=== PATIENT | female | born 1930 | race Hispanic/Latino ===

== ENCOUNTER 2017-08-11 15:41 | Inpatient (IN) | payer MEDICARE, BC ==
[2017-08-11 16:27] LABS: Hematocrit 29.6 % (36.0-47.0); Mean Platelet Volume 7.6 fL (7.4-10.4); Red Blood Cell (RBC) Count 3.25 mill/uL (4.20-5.40); White Blood Cell (WBC) Count 1.7 thou/uL (4.8-10.8)
[2017-08-11 16:35] LABS: Lactic Acid - Sepsis 0.9 mmol/L (0.5-2.2)
[2017-08-11 16:42] LABS: ALT (SGPT) 18 U/L (8-55); AST (SGOT) 27 U/L (5-34); Alkaline Phosphatase 70 U/L (40-150); Anion Gap 13 mmol/L (10-20); BUN (Urea Nitrogen) 36 mg/dL (9.8-20.1); Bilirubin, Total 0.8 mg/dL (0.2-1.2); Calc. Creatinine Clearance 0 mL/min (70-130); Calcium 8.6 mg/dL (7.8-10.44); Carbon Dioxide 28 mmol/L (23-31); Chloride 88 mmol/L (98-107); Estimated GFR-MDRD 27; Globulin 3.9 g/dL (2.4-3.5)
[2017-08-11 16:47] LABS: Troponin I 0.227 ng/mL (< 0.028)
[2017-08-11 16:53] LABS: Bilirubin Negative (Negative); Blood, Urine Negative (Negative); Glucose, Urine (Dipstick) Negative (Negative); Ketone, Urine Negative (Negative); Nitrite Negative (Negative); Protein, Urine (Dipstick) Negative (Neg-Trace); Urobilinogen 0.2 mg/dL (0.2-1.0)
[2017-08-11 16:58] LABS: Band 1 % (5-11); Neutrophil 4 % (42-75); Ovalocytes SLIGHT = 2-5 cells (100X) (0-1/hpf); Polychromasia SLIGHT = 2-3 cells (100X) (0-2/hpf); Reactive Lymphocytes 10 % (0-10)
--- NOTE | 2017-08-11 17:42 | CT ---
CT BRAIN WITHOUT CONTRAST 08/11/17 HISTORY: Altered mental status. FINDINGS: Comparison is made with the exam of 06/30/17. Changes of chronic small vessel ischemic disease are again seen. The ventricular size is stable and the basilar cisterns patent. No evidence of acute infarct, hemorrhage, midline shift or abnormal ext ra-axial fluid collections is noted. The bony calvarium is intact. The visualized paranasal sinuses and mastoid air cells are well aerated. The probable arachnoid cyst in the left middle cranial fossa is stable. IMPRESSION: Stable exam. No acute process. POS: [facility]
[2017-08-11] MEDS ORDERED: Piperacillin/Tazobactam 4.5 GM VIAL ONE (18:36)
[2017-08-11] MEDS ORDERED: Sodium Chloride 0.9% 100 ML ONE (18:37)
[2017-08-11] MEDS ORDERED: Acetaminophen 650 MG Suppository ONE (18:37)
[2017-08-11] MEDS ORDERED: Vancomycin HCl 1 GM in Premix Bag 1 BAG IVPB SCH (18:45)
[2017-08-11] MEDS ORDERED: Piperacillin/Tazobactam 4.5 GM in Sodium Chloride 0.9% 100 ML IVPB SCH (18:45)
--- NOTE | 2017-08-11 19:00 | RAD ---
SINGLE VIEW OF THE CHEST: 08/11/17 COMPARISON: 07/12/17 HISTORY: Sepsis. Altered mental status. FINDINGS: Single view of the chest shows a normal sized cardiomediastinal silhouette. There is no evidence of consolidation, mass, or pleural effusion. The bones are unremarkable. IMPRESSION: No evidence of acute cardiopulmonary disease. POS: [facility]
[2017-08-11] MEDS ORDERED: Sodium Chloride 0.9% 1,000 ML IV SCH (21:06)
[2017-08-11] MEDS ORDERED: Ondansetron HCl/PF 4 MG/2 ML Vial IVP PRN (21:06)
[2017-08-11] MEDS ORDERED: Ondansetron ODT 4 MG TAB SL PRN (21:06)
[2017-08-11 21:08] LABS: Troponin I 0.231 ng/mL (< 0.028)
[2017-08-11 21:15] VITALS: BMI 28.9
[2017-08-12] MEDS ORDERED: Guaifenesin DM 100-10/5 ML UDCUP PO PRN (00:40)
[2017-08-12] MEDS ORDERED: Acetaminophen 325 MG TAB PO PRN (00:40)
[2017-08-12] MEDS ORDERED: traZODone HCl 50 MG TAB PO PRN (00:40)
[2017-08-12] MEDS ORDERED: VANCOMYCIN IVPB PRN (00:57)
[2017-08-12 01:24] LABS: Lactic Acid - Sepsis 0.8 mmol/L (0.5-2.2)
[2017-08-12] MEDS: Sodium Chloride 0.9% 1,000 ML IV SCH ×3 (01:28→19:52)
[2017-08-12] MEDS: Piperacillin/Tazobactam 4.5 GM in Sodium Chloride 0.9% 100 ML IVPB SCH ×3 (01:36→14:24)
--- NOTE | 2017-08-12 05:08 | HP ---
REASON FOR ADMISSION: Sepsis, acute encephalopathy, acute kidney injury, demand ischemia, and hyponatremia. HISTORY OF PRESENT ILLNESS: Please note majority of this history is obtained by my talking to ER physician and prior records as patient is not fully oriented at present. She was apparently sent from retirement for declining mental status, which has been progressive from last 7 weeks and was not participating with physical therapy. She was evaluated in the ER and was found to have had a temperature of 99 with white count of 1.7 and 42% lymphocytes. All her workup in the ER for infectious source has been negative. Currently, she is very lethargic, opens her eyes and falls asleep. PAST MEDICAL AND SURGICAL HISTORY: History of recent subarachnoid hemorrhage in June of this year, rib fractures, maxillary sinus fracture, left hemopneumothorax, Takotsubo syndrome with EF of around 20% post trauma, diabetes mellitus type 2, dyslipidemia, history of diverticulitis, osteoarthritis, hypotension, hysterectomy, cholecystectomy. PERSONAL HISTORY: Does not abuse alcohol or drugs. No history of smoking. Currently, a resident of [facility]. FAMILY HISTORY: Cannot be obtained as patient is very lethargic. ALLERGIES: To LATEX, SULFA, and MORPHINE. CURRENT MEDICATIONS: Patient is on aspirin 81 mg p.o. daily, Lipitor 10 mg p.o. at bedtime, Coreg 3.125 mg p.o. twice daily, Plavix 75 mg daily, digoxin 0.125 mg p.o. daily, Lexapro 10 mg daily, Lasix 20 mg twice daily, gabapentin 100 mg p.o. 3 times daily, lisinopril 2.5 mg p.o. daily, multivitamin 1 tab once daily, oxybutynin extended release 15 mg daily, Protonix 40 mg daily, MiraLax 17 grams daily, metformin 500 mg twice daily, Ultram p.r.n., trazodone 50 mg p.o. at bedtime p.r.n. REVIEW OF SYSTEMS: Cannot be obtained as patient is lethargic. PHYSICAL EXAMINATION: GENERAL: The patient is an 86-year-old female, who is currently very lethargic , but not in any acute distress. VITAL SIGNS: Blood pressure 110/64 with blood pressures ranging down to 90/60 at times, pulse 72 per minute, respiratory rate 20 per minute, temperature 99 degrees Fahrenheit, saturating 96% on 2 L nasal cannula. NECK: Supple, no elevated JVD. HEENT: Eyes: Extraocular muscles intact. Pupils reacting to light. Oral cavity, mucous membranes are dry. No exudates or congestion. CARDIOVASCULAR SYSTEM: S1, S2 heard. Regular rhythm. RESPIRATORY SYSTEM: Air entry 1+ bilateral. Scattered rales in the infra- axillary area. ABDOMEN: Soft, bowel sounds heard. No tenderness, rigidity, or guarding. There is some ecchymotic area on the abdomen, likely from her Lovenox subcutaneous shots. EXTREMITIES: No peripheral edema or calf tenderness. VASCULAR SYSTEM: Peripheral pulses 1+ bilateral. No ischemic ulcerations or gangrene. CENTRAL NERVOUS SYSTEM: No gross focal deficit seen. Patient moves all extremities, but is very slow to move them. PSYCHIATRIC SYSTEM: Cannot be accurately assessed due to patient's lethargy. LABORATORY AND X-RAY FINDINGS: Chest x-ray done shows no acute infiltrate or congestion. CT brain done shows no acute infarct, bleed or midline shift. UA is negative for nitrite and leukocyte esterase. Troponin I 0.227, CK-MB 1.4, albumin is 3.1, BUN 36, creatinine 1.8, sodium 125, serum bicarbonate 28, glucose is 255. Liver enzymes within normal limits. White count of 1.7, H and H 10 and 29, MCV is 91 with platelet count of 285 and 4% neutrophils with 42% lymphocytes and 42% monocytes. CLINICAL IMPRESSION AND PLAN: The patient will be admitted to medical floor for possible sepsis with acute encephalopathy. It appears like the patient has been progressively declining from last few weeks. Also, her CBC shows leukopenia with 4% neutrophils. Peripheral smear review by pathologist is pending at present. She also has mild acute kidney injury likely from dehydration and prerenal. Patient has history of Takotsubo syndrome with last EF of 20%-25%. Barnes cultures have been obtained and she will be on vancomycin and Zosyn. She would be gently hydrated in view of ejection fraction of around 20%-25%. We will obtain a BNP levels. Likely her hyponatremia is due to dehydration, but has basal rales on clinical exam. The patient will likely need palliative care consultation in view of her progressively declining. We will obtain an echo with 2D Doppler to assess her current EF. The patient's ejection fraction was 50%-55% prior to her traumatic hospitalization in June. We will also request consultation from Dr. Wright for suspected sepsis. Her overall prognosis is guarded. Please note I have seen and examined patient on . MTDD
[2017-08-12 05:47] LABS: ALT (SGPT) 16 U/L (8-55); AST (SGOT) 23 U/L (5-34); Alkaline Phosphatase 60 U/L (40-150); Anion Gap 14 mmol/L (10-20); BUN (Urea Nitrogen) 34 mg/dL (9.8-20.1); Bilirubin, Total 0.6 mg/dL (0.2-1.2); Calc. Creatinine Clearance 35 mL/min (70-130); Calcium 8.3 mg/dL (7.8-10.44); Carbon Dioxide 30 mmol/L (23-31); Chloride 93 mmol/L (98-107); Estimated GFR-MDRD 31; Globulin 3.4 g/dL (2.4-3.5)
[2017-08-12 05:57] LABS: Hematocrit 26.6 % (36.0-47.0); Mean Platelet Volume 7.7 fL (7.4-10.4); Microcytosis MODERATE=15-30 cells (100X) (0-5/hpf); Neutrophil 4 % (42-75); Ovalocytes SLIGHT = 2-5 cells (100X) (0-1/hpf); Red Blood Cell (RBC) Count 2.87 mill/uL (4.20-5.40); White Blood Cell (WBC) Count 2.2 thou/uL (4.8-10.8)
[2017-08-12] MEDS: Aspirin 81 mg Enteric Coated Tablet PO SCH (07:55)
[2017-08-12] MEDS: Escitalopram Oxalate 10 mg Tablet PO SCH (07:56)
[2017-08-12] MEDS: Famotidine 20 MG TAB PO SCH (07:56)
[2017-08-12] MEDS: Docusate 100 MG CAP PO SCH ×2 (07:56→19:51)
[2017-08-12] MEDS: Clopidogrel Bisulfate 75 MG TAB PO SCH (07:57)
[2017-08-12] MEDS: Enoxaparin Sodium 30 MG/0.3 ML SYRINGE SC SCH (07:57)
[2017-08-12] MEDS: Digoxin 0.125 MG TAB PO SCH (08:05)
[2017-08-12] MEDS ORDERED: Vancomycin HCl 1 GM in Premix Bag 1 BAG IVPB SCH (09:00)
--- NOTE | 2017-08-12 11:00 | PDOC.PN ---
- Subjective Encounter Start Date: 08/12/17 Encounter Start Time: 07:45 -: old records requested/rev as per granddaughter, [place] go [place] from [place] but no body at home can take care of her, her is 89 years, she was agitated at group home, she was swing bed before but no improvement so sent to group home, had on and off fever at group home this morning per grand daughter pt is doing well - Objective Resuscitation Status: Resuscitation Status FULL:Full Resuscitation MAR Reviewed: Yes Vital Signs & Weight: Vital Signs (12 hours) Temp Pulse Resp BP Pulse Ox 08/12/17 08:05 60 08/12/17 07:18 98 F 62 16 102/62 98 08/12/17 04:00 99.3 F 84 20 103/60 96 08/12/17 00:48 97.6 F 61 20 94 L 08/11/17 23:16 98.1 F 61 20 Weight Weight 190 lb 5 oz Result Diagrams: 08/12/17 05:08 08/12/17 05:08 Additional Labs: Accuchecks 08/12/17 05:37 POC Glucose 155 H Phys Exam - Physical Examination Constitutional: NAD HEENT: PERRLA, moist MMs, sclera anicteric Neck: no JVD, supple Respiratory: no wheezing, no rales, no rhonchi Cardiovascular: RRR, no significant murmur, no rub Gastrointestinal: soft, non-tender, no distention, positive bowel sounds Musculoskeletal: no edema, pulses present Neurological: non-focal, normal sensation Psychiatric: normal affect Skin: no rash, normal turgor Dx/Plan (1) Encephalopathy acute Code(s): G93.40 - ENCEPHALOPATHY, UNSPECIFIED Status: Acute (2) Leucopenia Code(s): D72.819 - DECREASED WHITE BLOOD CELL COUNT, UNSPECIFIED Status: Acute (3) Sepsis Code(s): A41.9 - SEPSIS, UNSPECIFIED ORGANISM Status: Acute (4) Anemia, normocytic normochromic Code(s): D64.9 - ANEMIA, UNSPECIFIED Status: Chronic (5) Anxiety and depression Code(s): F41.8 - OTHER SPECIFIED ANXIETY DISORDERS Status: Chronic (6) CAD (coronary artery disease) Code(s): I25.10 - ATHSCL HEART DISEASE OF [place] CORONARY ARTERY W/O ANG PCTRS Status: Chronic (7) CKD (chronic kidney disease) stage 3, GFR 30-59 ml/min Code(s): N18.3 - CHRONIC KIDNEY DISEASE, STAGE 3 (MODERATE) Status: Chronic Comment: Azotemia due to chf. (8) Dyslipidemia Code(s): E78.5 - HYPERLIPIDEMIA, UNSPECIFIED Status: Chronic (9) Takotsubo cardiomyopathy Code(s): I51.81 - TAKOTSUBO SYNDROME Status: Chronic - Plan cont current plan of care, plan discussed w/ family, continue antibiotics * echo for elvated BNP * follow culture * continue empiric antibiotics, vancomycin and zosyn, though source of infection is not clear * discussed with family. Review of Systems - Review of Systems ENT: negative: Ear Pain, Ear Discharge, Nose Pain, Nose Discharge, Nose Congestion, Mouth Pain, Mouth Swelling, Throat Pain, Throat Swelling, Other Respiratory: negative: Cough, Dry, Shortness of Breath, Hemoptysis, SOB with Excertion, Pleuritic Pain, Sputum, Wheezing Cardiovascular: negative: Chest Pain, Palpitations, Orthopnea, Paroxysmal Noc. Dyspnea, Edema, Light Headedness, Other Gastrointestinal: negative: Nausea, Vomiting, Abdominal Pain, Diarrhea, Constipation, Melena, Hematochezia, Other Genitourinary: negative: Dysuria, Frequency, Incontinence, Hematuria, Retention , Other Musculoskeletal: negative: Neck Pain, Shoulder Pain, Arm Pain, Back Pain, Hand Pain, Leg Pain, Foot Pain, Other - Medications/Allergies Allergies/Adverse Reactions: Allergies Allergy/AdvReac Type Severity Reaction Status Date / Time latex Allergy Verified 08/11/17 21:02 Sulfa (Sulfonamide Allergy Verified 08/11/17 21:02 Antibiotics) Medications: Current Medications Acetaminophen (Tylenol) 650 mg PO Q4H PRN PRN Reason: Headache/Fever or Pain Aspirin (Ecotrin) 81 mg PO DAILY [facility] Last Admin: 08/12/17 07:55 Dose: 81 mg Atorvastatin Calcium (Lipitor) 10 mg PO HS [facility] Clopidogrel Bisulfate (Plavix) 75 mg PO DAILY [facility] Last Admin: 08/12/17 07:57 Dose: 75 mg Digoxin (Lanoxin) 0.125 mg PO QAM [facility] Last Admin: 08/12/17 08:05 Dose: 0.125 mg Docusate Sodium (Colace) 100 mg PO BID [facility] Last Admin: 08/12/17 07:56 Dose: 100 mg Enoxaparin Sodium (Lovenox) 30 mg SC DAILY [facility] Last Admin: 08/12/17 07:57 Dose: 30 mg Escitalopram Oxalate (Lexapro) 10 mg PO DAILY [facility] Last Admin: 08/12/17 07:56 Dose: 10 mg Famotidine (Pepcid) 20 mg PO DAILY [facility] Last Admin: 08/12/17 07:56 Dose: 20 mg Guaifenesin/Dextromethorphan (Robitussin Dm) 15 ml PO Q4H PRN PRN Reason: Cough Sodium Chloride (Normal Saline 0.9%) 1,000 mls @ 50 mls/hr IV .Q20H [facility] Last Admin: 08/12/17 01:28 Dose: Not Given Piperacillin Sod/Tazobactam (Sod 4.5 gm/ Sodium Chloride) 100 mls @ 200 mls/hr IVPB 0300,0900,1500,2100 [facility] Stop: 08/12/17 16:00 Last Admin: 08/12/17 08:21 Dose: 100 mls Piperacillin Sod/Tazobactam (Sod 3.375 gm/ Sodium Chloride) 100 mls @ 200 mls/ hr IVPB 0300,0900,1500,2100 [facility] Vancomycin HCl 750 mg/ Sodium (Chloride) 250 mls @ 250 mls/hr IVPB 2000 [facility] Miscellaneous Medication (Pharmacy To Dose) 1 each IVPB PRN PRN PRN Reason: SEPSIS Oxybutynin Chloride (Ditropan Xl) 15 mg PO DAILY [facility] Last Admin: 08/12/17 07:56 Dose: 15 mg Trazodone HCl (Desyrel) 50 mg PO HSPRN PRN PRN Reason: Insomnia
[2017-08-12] MEDS ORDERED: Dextrose 5% in Water 1,000 ML IV PRN (12:17)
[2017-08-12] MEDS ORDERED: Dextrose 50% Abboject 50 ML SYRINGE IVP PRN (12:17)
[2017-08-12] MEDS: HumaLOG 300 UNITS/3 ML VIAL SC PRN ×2 (12:30→18:08)
--- NOTE | 2017-08-12 15:06 | CON ---
DATE OF CONSULTATION: 08/12/2017 REASON FOR CONSULTATION: Change in mental status and neutropenia. HISTORY OF PRESENT ILLNESS: An 86-year-old who has a history of Takotsubo cardiomyopathy with ejection fraction around 20%, type 2 diabetes mellitus and osteoarthritis particularly in the knees and prior diverticulitis, who was initially admitted this year to this hospital after having sustained a fall in the home setting. The episode occurred from 06/23. At that time, she had slipped inside her home and fell on a concrete floor and had a number of injuries including a small subarachnoid hemorrhage along the left sylvian fissure, number of facial fractures and rib fractures. She also had a left hemopneumothorax and all those things were managed conservatively. The patient was readmitted with altered mental status. She was felt to have a non-ST segment elevation myocardial infarction and a severely depressed ejection fraction was noted. Cardiac catheterization did not reveal any coronary artery disease, therefore the diagnosis of Takotsubo cardiomyopathy was made. She was then transferred to the swing bed in [place] on Lipitor, Coreg, Plavix, cyclobenzaprine, digoxin, Lovenox, Lexapro, furosemide, Neurontin, lorazepam, Levaquin, lisinopril, Ditropan, Protonix, polyethylene glycol, oxycodone, tramadol, all those p.r.n., and trazodone at bedtime. Her hematology results then have ranged from 15 on admission on 06/23 down to 9.4 on 07/10 and then they went down to 4.6 on 07/31. This time, she was brought in because of change in mental status, which has been worsening for the past 7 weeks while she has been there at swing bed in [place]. She had not been participating in physical therapy. Initial evaluation in the emergency room demonstrated a temperature of 99 with a WBC count of 1.7 and 42% lymphocytes, and she was lethargic and very sleepy. The patient currently is fully awake and oriented, recognizes family members. She has even a sense of humor. Denies headaches. No change in visual symptoms, sore throat, odynophagia or dysphagia. No dyspnea or chest pain. She does have some chest pain in the left lower segment of the anterior chest wall, probably related to the previous rib fractures. She has full bladder and needs to void. No other abdominal tenderness. She has no diarrhea or constipation. She has chronic joint pains in the knees and right shoulder, which is unchanged. She has been deemed not a candidate for knee replacement. No other neurological findings or symptoms. PAST MEDICAL HISTORY: Type 2 diabetes, dyslipidemia, prior diverticulitis, osteoarthritis particularly in the knee area, not being felt to be eligible for replacement of the joints. Prior hysterectomy, cholecystectomy, history of recent fall, which was accidental with numerous injuries including facial and rib fractures and small left hemopneumothorax and also some form of cardiomyopathy with an ejection fraction around 20% with a negative coronary or normal coronary angiogram. Her ejection fraction initially was 20% and the last review was 20% to 25%. ALLERGIES: LATEX, SULFA DRUGS and MORPHINE. CURRENT MEDICATION LIST: Includes Tylenol, Ecotrin, Lipitor, Plavix, IV fluids , Lanoxin, Colace, Lovenox, Lexapro, Pepcid, glucagon, Robitussin, insulin, oxybutynin, Zosyn and vancomycin. FAMILY HISTORY: Noncontributory. SOCIAL HISTORY: Never a smoker and resident at [facility]. PHYSICAL EXAMINATION: VITAL SIGNS: Since admission, T-max 99.3. She is now 98.4. Blood pressure 164 , pulse is 56-62, respirations 16 and O2 sat 93% to 98% on 2 liters nasal cannula. SKIN: Shows a few areas of bruising associated with Lovenox injections. A very mild area of erythema in the presacral region and foot also has mild area of erythema. Peripheral IV access and she has no Mcmullen catheter. No lymphadenopathy. HEENT: Ocular movements are conjugate. Sclerae are white. Pupils are equal. Oral cavity with missing teeth in the upper maxilla and in the lower, there are few ones remaining, but quite a few missing ones in the lower one as well. NECK: Supple. No jugular venous distention. LUNGS: With symmetric breath sounds with crackles at the right base. HEART: S1 and S2 with no S3 or S4, regular rate. No wheezing noted. ABDOMEN: Moderately distended, particularly in the suprapubic area and bladder is full. She has the urge to void. EXTREMITIES: The joints have structural abnormalities with a lot of crepitus, deformity of the knee joints. The right one appears to have some effusion. No erythema noted. The patient has trace edema in the lower extremities. She has 1+ pulses in the dorsalis pedis. NEUROLOGIC: Plantar responses are flexor. No clonus. Cognitive function appears to be much improved since admission. LABORATORY DATA: White cell count is 1.7 on arrival and now it is 2.2, hemoglobin 10 and 8.6, MCV 92 and platelets 241. She has 4% neutrophils with a total neutrophil count of about 80 and 66% lymphocytes. The sodium is 132 and creatinine is 1.58. Liver profile is normal. BNP is 765 and albumin 2.6. Urinalysis was normal. Microbiology with negative blood cultures and the respiratory virus panel was negative. IMAGING DATA: Imaging studies showed a chest x-ray with no acute cardiopulmonary findings. Brain CT was stable. No acute process. ASSESSMENT: 1. Diabetes type 2. 2. Recent fall with numerous injuries as described above. 3. Mobility impairment with transfer to rehabilitation. 4. Non-ST segment elevation associated with Takotsubo cardiomyopathy, which is a presumptive diagnosis. 5. Delirium, recurrent with prompt improvement after admission to the hospital. At this time associated with neutropenia, which is severe. DISCUSSION: The differential diagnosis includes drug-induced neutropenia and delirium. She is on a number of medications that can be associated with either one of them. I would focus on the trazodone, Neurontin, benzodiazepine drugs and opioids. An infectious process is less likely. She does not have evidence of sepsis syndrome at this time and an autoimmune syndrome is not likely either. Broad-spectrum coverage has been started and we will go ahead and continue this, but limit to just one broad-spectrum antimicrobial. Can discontinue vancomycin. Eventually discontinue antimicrobials according to culture results The sedative agents need to be discontinued to prevent recrudescence of the delirium. MTDD
[2017-08-12] MEDS: Piperacillin/Tazobactam 3.375 GM in Sodium Chloride 0.9% 100 ML IVPB SCH (19:52)
[2017-08-12] MEDS: Atorvastatin Calcium 10 MG TAB PO SCH (19:52)
[2017-08-12] MEDS ORDERED: Vancomycin HCl 750 MG in Sodium Chloride 0.9% 250 ML 250 ML IVPB SCH (20:00)
[2017-08-13] MEDS: Piperacillin/Tazobactam 3.375 GM in Sodium Chloride 0.9% 100 ML IVPB SCH ×4 (02:17→20:58)
[2017-08-13] MEDS: HumaLOG 300 UNITS/3 ML VIAL SC PRN ×3 (05:55→16:56)
[2017-08-13 08:53] LABS: Hematocrit 25.6 % (36.0-47.0); Mean Platelet Volume 7.5 fL (7.4-10.4); Red Blood Cell (RBC) Count 2.75 mill/uL (4.20-5.40); White Blood Cell (WBC) Count 3.1 thou/uL (4.8-10.8)
[2017-08-13] MEDS: Digoxin 0.125 MG TAB PO SCH (09:00)
[2017-08-13 09:14] LABS: Anion Gap 15 mmol/L (10-20); BUN (Urea Nitrogen) 29 mg/dL (9.8-20.1); Calc. Creatinine Clearance 39 mL/min (70-130); Calcium 8.4 mg/dL (7.8-10.44); Carbon Dioxide 27 mmol/L (23-31); Chloride 94 mmol/L (98-107); Estimated GFR-MDRD 35
[2017-08-13] MEDS: Aspirin 81 mg Enteric Coated Tablet PO SCH (09:57)
[2017-08-13] MEDS: Famotidine 20 MG TAB PO SCH (09:57)
[2017-08-13] MEDS: Docusate 100 MG CAP PO SCH ×2 (09:57→20:58)
[2017-08-13] MEDS: Clopidogrel Bisulfate 75 MG TAB PO SCH (09:57)
[2017-08-13] MEDS: Enoxaparin Sodium 30 MG/0.3 ML SYRINGE SC SCH (09:58)
[2017-08-13] MEDS: Escitalopram Oxalate 10 mg Tablet PO SCH (09:58)
[2017-08-13 10:01] LABS: Band 9 % (5-11); Neutrophil 13 % (42-75); Polychromasia SLIGHT = 2-3 cells (100X) (0-2/hpf)
[2017-08-13] MEDS: GRANIX 300 MCG/0.5 ML VIAL SC SCH (10:01)
--- NOTE | 2017-08-13 10:22 | PDOC.PN ---
- Subjective Encounter Start Date: 08/13/17 Encounter Start Time: 07:40 Patient seen and examined. No new complaints. No overnight events - Objective Resuscitation Status: Resuscitation Status FULL:Full Resuscitation MAR Reviewed: Yes Vital Signs & Weight: Vital Signs (12 hours) Temp Pulse Resp BP Pulse Ox 08/13/17 07:23 97.8 F 51 L 16 132/69 97 08/13/17 00:50 98.7 F 56 L 18 90/53 L 92 L Weight Weight 190 lb 5 oz Result Diagrams: 08/13/17 08:39 08/13/17 08:39 Additional Labs: Accuchecks 08/13/17 08/12/17 08/12/17 05:32 20:15 16:22 POC Glucose 183 H 165 H 214 H 08/12/17 11:27 POC Glucose 255 H Phys Exam - Physical Examination Constitutional: NAD HEENT: PERRLA, moist MMs, sclera anicteric Neck: no JVD, supple Respiratory: no wheezing, no rales, no rhonchi Cardiovascular: RRR, no significant murmur, no rub Gastrointestinal: soft, non-tender, no distention Musculoskeletal: no edema, pulses present Neurological: non-focal, normal sensation Lymphatic: no nodes Psychiatric: normal affect, A&O x 3 Skin: no rash, normal turgor Dx/Plan (1) Encephalopathy acute Code(s): G93.40 - ENCEPHALOPATHY, UNSPECIFIED Status: Resolved (2) Leucopenia Code(s): D72.819 - DECREASED WHITE BLOOD CELL COUNT, UNSPECIFIED Status: Acute (3) Sepsis Code(s): A41.9 - SEPSIS, UNSPECIFIED ORGANISM Status: Acute (4) Anemia, normocytic normochromic Code(s): D64.9 - ANEMIA, UNSPECIFIED Status: Chronic (5) Anxiety and depression Code(s): F41.8 - OTHER SPECIFIED ANXIETY DISORDERS Status: Chronic (6) CAD (coronary artery disease) Code(s): I25.10 - ATHSCL HEART DISEASE OF [place] CORONARY ARTERY W/O ANG PCTRS Status: Chronic (7) CKD (chronic kidney disease) stage 3, GFR 30-59 ml/min Code(s): N18.3 - CHRONIC KIDNEY DISEASE, STAGE 3 (MODERATE) Status: Chronic Comment: (8) Dyslipidemia Code(s): E78.5 - HYPERLIPIDEMIA, UNSPECIFIED Status: Chronic (9) Takotsubo cardiomyopathy Code(s): I51.81 - TAKOTSUBO SYNDROME Status: Chronic - Plan cont current plan of care, continue antibiotics, 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 Review of Systems - Review of Systems Constitutional: negative: Fever, Chills, Sweats, Weakness, Malaise, Other Respiratory: negative: Cough, Dry, Shortness of Breath, Hemoptysis, SOB with Excertion, Pleuritic Pain, Sputum, Wheezing Cardiovascular: negative: Chest Pain, Palpitations, Orthopnea, Paroxysmal Noc. Dyspnea, Edema, Light Headedness, Other Gastrointestinal: negative: Nausea, Vomiting, Abdominal Pain, Diarrhea, Constipation, Melena, Hematochezia, Other Genitourinary: negative: Dysuria, Frequency, Incontinence, Hematuria, Retention , Other Musculoskeletal: negative: Neck Pain, Shoulder Pain, Arm Pain, Back Pain, Hand Pain, Leg Pain, Foot Pain, Other - Medications/Allergies Allergies/Adverse Reactions: Allergies Allergy/AdvReac Type Severity Reaction Status Date / Time latex Allergy Verified 08/11/17 21:02 Sulfa (Sulfonamide Allergy Verified 08/11/17 21:02 Antibiotics) Medications: Current Medications Acetaminophen (Tylenol) 650 mg PO Q4H PRN PRN Reason: Headache/Fever or Pain Aspirin (Ecotrin) 81 mg PO DAILY [facility] Last Admin: 08/13/17 09:57 Dose: 81 mg Atorvastatin Calcium (Lipitor) 10 mg PO HS [facility] Last Admin: 08/12/17 19:52 Dose: 10 mg Clopidogrel Bisulfate (Plavix) 75 mg PO DAILY [facility] Last Admin: 08/13/17 09:57 Dose: 75 mg Dextrose/Water (Dextrose 50%) 25 gm IVP PRN PRN PRN Reason: HYPOGLYCEMIA PROTOCOL Digoxin (Lanoxin) 0.125 mg PO QAM [facility] Last Admin: 08/12/17 08:05 Dose: 0.125 mg Docusate Sodium (Colace) 100 mg PO BID [facility] Last Admin: 08/13/17 09:57 Dose: 100 mg Enoxaparin Sodium (Lovenox) 30 mg SC DAILY [facility] Last Admin: 08/13/17 09:58 Dose: 30 mg Escitalopram Oxalate (Lexapro) 10 mg PO DAILY [facility] Last Admin: 08/13/17 09:58 Dose: 10 mg Famotidine (Pepcid) 20 mg PO DAILY [facility] Last Admin: 08/13/17 09:57 Dose: 20 mg Glucagon (Glucagon) 1 mg IM PRN PRN PRN Reason: HYPOGLYCEMIA PROTOCOL Guaifenesin/Dextromethorphan (Robitussin Dm) 15 ml PO Q4H PRN PRN Reason: Cough Sodium Chloride (Normal Saline 0.9%) 1,000 mls @ 50 mls/hr IV .Q20H [facility] Last Admin: 08/12/17 19:52 Dose: Not Given Piperacillin Sod/Tazobactam (Sod 3.375 gm/ Sodium Chloride) 100 mls @ 200 mls/ hr IVPB 0300,0900,1500,2100 [facility] Last Admin: 08/13/17 09:56 Dose: 100 mls Dextrose/Water (D5w) 1,000 mls @ 0 mls/hr IV INF PRN; As Directed PRN Reason: HYPOGLYCEMIA PROTOCOL Insulin Human Lispro (Humalog) 0 units SC .MODERATE SLIDING SC PRN; Protocol PRN Reason: MODERATE SLIDING SCALE Last Admin: 08/13/17 05:55 Dose: 2 unit Oxybutynin Chloride (Ditropan Xl) 15 mg PO DAILY [facility] Last Admin: 08/13/17 09:57 Dose: 15 mg Tbo-Filgrastim (Granix) 300 mcg SC DAILY [facility] Stop: 08/15/17 09:01 Last Admin: 08/13/17 10:01 Dose: 300 mcg Trazodone HCl (Desyrel) 50 mg PO HSPRN PRN PRN Reason: Insomnia
[2017-08-13] MEDS: Sodium Chloride 0.9% 1,000 ML IV SCH (15:13)
[2017-08-13] MEDS: Atorvastatin Calcium 10 MG TAB PO SCH (20:58)
[2017-08-14] MEDS: Sodium Chloride 0.9% 1,000 ML IV SCH (00:25)
[2017-08-14] MEDS: Piperacillin/Tazobactam 3.375 GM in Sodium Chloride 0.9% 100 ML IVPB SCH ×2 (03:15→10:01)
[2017-08-14] MEDS: HumaLOG 300 UNITS/3 ML VIAL SC PRN ×2 (05:54→17:04)
[2017-08-14 08:27] LABS: Anion Gap 13 mmol/L (10-20); BUN (Urea Nitrogen) 15 mg/dL (9.8-20.1); Calc. Creatinine Clearance 50 mL/min (70-130); Calcium 9.2 mg/dL (7.8-10.44); Carbon Dioxide 28 mmol/L (23-31); Chloride 98 mmol/L (98-107); Estimated GFR-MDRD 47
[2017-08-14] MEDS ORDERED: Furosemide 40 MG/4 ML VIAL SLOW IVP SCH (08:30)
[2017-08-14] MEDS: Docusate 100 MG CAP PO SCH ×2 (08:43→20:45)
[2017-08-14 08:44] LABS: Band 26 % (5-11); Hematocrit 30.7 % (36.0-47.0); Mean Platelet Volume 7.5 fL (7.4-10.4); Metamyelocyte 6 % (0-0); Neutrophil 45 % (42-75); Polychromasia SLIGHT = 2-3 cells (100X) (0-2/hpf); White Blood Cell (WBC) Count 15.8 thou/uL (4.8-10.8)
[2017-08-14] MEDS: GRANIX 300 MCG/0.5 ML VIAL SC SCH (08:46)
[2017-08-14] MEDS: Enoxaparin Sodium 30 MG/0.3 ML SYRINGE SC SCH (08:47)
--- NOTE | 2017-08-14 11:43 | PDOC.PN ---
- Subjective Encounter Start Date: 08/14/17 Encounter Start Time: 07:50 this morning pt has dyspnea, she was trying to pull out iv so required restraint , no fever - Objective Resuscitation Status: Resuscitation Status FULL:Full Resuscitation MAR Reviewed: Yes Vital Signs & Weight: Vital Signs (12 hours) Temp Pulse Resp BP BP Pulse Ox 08/14/17 08:00 99.8 F H 71 32 H 08/14/17 07:32 99.8 F H 71 32 H 161/71 H 94 L 08/14/17 06:00 98.7 F 84 20 149/73 H 95 08/14/17 00:00 98.3 F 76 20 138/63 96 Weight Weight 190 lb 5 oz I&O: 08/13/17 08/14/17 08/15/17 06:59 06:59 06:59 Intake Total 2200 Balance 2200 Result Diagrams: 08/14/17 07:59 08/14/17 07:59 Additional Labs: Accuchecks 08/14/17 08/13/17 08/13/17 05:52 20:49 16:11 POC Glucose 209 H 176 H 196 H 08/13/17 11:23 POC Glucose 228 H Radiology Reviewed by me: Yes (chest xray) Phys Exam - Physical Examination Constitutional: NAD HEENT: PERRLA, moist MMs, sclera anicteric Neck: no JVD, supple Respiratory: wheezing present few base rales Cardiovascular: RRR, no significant murmur, no rub Gastrointestinal: soft, non-tender, no distention, positive bowel sounds Musculoskeletal: no edema, pulses present Neurological: moves all 4 limbs Psychiatric: normal affect Skin: no rash, normal turgor Dx/Plan (1) Encephalopathy acute Code(s): G93.40 - ENCEPHALOPATHY, UNSPECIFIED Status: Resolved (2) Leucopenia Code(s): D72.819 - DECREASED WHITE BLOOD CELL COUNT, UNSPECIFIED Status: Resolved (3) Sepsis Code(s): A41.9 - SEPSIS, UNSPECIFIED ORGANISM Status: Ruled-out (4) Anemia, normocytic normochromic Code(s): D64.9 - ANEMIA, UNSPECIFIED Status: Chronic (5) Anxiety and depression Code(s): F41.8 - OTHER SPECIFIED ANXIETY DISORDERS Status: Chronic (6) CAD (coronary artery disease) Code(s): I25.10 - ATHSCL HEART DISEASE OF [place] CORONARY ARTERY W/O ANG PCTRS Status: Chronic (7) CKD (chronic kidney disease) stage 3, GFR 30-59 ml/min Code(s): N18.3 - CHRONIC KIDNEY DISEASE, STAGE 3 (MODERATE) Status: Chronic Comment: (8) Dyslipidemia Code(s): E78.5 - HYPERLIPIDEMIA, UNSPECIFIED Status: Chronic (9) Takotsubo cardiomyopathy Code(s): I51.81 - TAKOTSUBO SYNDROME Status: Chronic (10) Acute on chronic diastolic (congestive) heart failure Code(s): I50.33 - ACUTE ON CHRONIC DIASTOLIC (CONGESTIVE) HEART FAILURE Status : Acute - Plan cont current plan of care * DC IVF * DC neupogen * Give lasix 40 mg iv bid * DC antibiotics for now as culture negative * medication reviewed as below * symptomatic treatment.. Review of Systems - Review of Systems ENT: negative: Ear Pain, Ear Discharge, Nose Pain, Nose Discharge, Nose Congestion, Mouth Pain, Mouth Swelling, Throat Pain, Throat Swelling, Other Respiratory: Shortness of Breath, SOB with Excertion. negative: Cough, Dry, Hemoptysis, Pleuritic Pain, Sputum, Wheezing Cardiovascular: negative: Chest Pain, Palpitations, Orthopnea, Paroxysmal Noc. Dyspnea, Edema, Light Headedness, Other Gastrointestinal: negative: Nausea, Vomiting, Abdominal Pain, Diarrhea, Constipation, Melena, Hematochezia, Other Genitourinary: negative: Dysuria, Frequency, Incontinence, Hematuria, Retention , Other Musculoskeletal: negative: Neck Pain, Shoulder Pain, Arm Pain, Back Pain, Hand Pain, Leg Pain, Foot Pain, Other - Medications/Allergies Allergies/Adverse Reactions: Allergies Allergy/AdvReac Type Severity Reaction Status Date / Time latex Allergy Verified 08/11/17 21:02 Sulfa (Sulfonamide Allergy Verified 08/11/17 21:02 Antibiotics) Medications: Current Medications Acetaminophen (Tylenol) 650 mg PO Q4H PRN PRN Reason: Headache/Fever or Pain Aspirin (Ecotrin) 81 mg PO DAILY [facility] Last Admin: 08/13/17 09:57 Dose: 81 mg Atorvastatin Calcium (Lipitor) 10 mg PO HS [facility] Last Admin: 08/13/17 20:58 Dose: 10 mg Clopidogrel Bisulfate (Plavix) 75 mg PO DAILY [facility] Last Admin: 09/22/17 09:57 Dose: 75 mg Dextrose/Water (Dextrose 50%) 25 gm IVP PRN PRN PRN Reason: HYPOGLYCEMIA PROTOCOL Digoxin (Lanoxin) 0.125 mg PO QAM [facility] Last Admin: 08/13/17 09:00 Dose: Not Given Docusate Sodium (Colace) 100 mg PO BID [facility] Last Admin: 08/14/17 08:43 Dose: Not Given Enoxaparin Sodium (Lovenox) 30 mg SC DAILY [facility] Last Admin: 08/14/17 08:47 Dose: 30 mg Escitalopram Oxalate (Lexapro) 10 mg PO DAILY [facility] Last Admin: 08/13/17 09:58 Dose: 10 mg Famotidine (Pepcid) 20 mg PO DAILY [facility] Last Admin: 08/13/17 09:57 Dose: 20 mg Furosemide (Lasix) 40 mg SLOW IVP 0600,1400 [facility] Glucagon (Glucagon) 1 mg IM PRN PRN PRN Reason: HYPOGLYCEMIA PROTOCOL Guaifenesin/Dextromethorphan (Robitussin Dm) 15 ml PO Q4H PRN PRN Reason: Cough Piperacillin Sod/Tazobactam (Sod 3.375 gm/ Sodium Chloride) 100 mls @ 200 mls/ hr IVPB 0300,0900,1500,2100 [facility] Last Admin: 08/14/17 10:01 Dose: 100 mls Dextrose/Water (D5w) 1,000 mls @ 0 mls/hr IV INF PRN; As Directed PRN Reason: HYPOGLYCEMIA PROTOCOL Insulin Human Lispro (Humalog) 0 units SC .MODERATE SLIDING SC PRN; Protocol PRN Reason: MODERATE SLIDING SCALE Last Admin: 08/14/17 05:54 Dose: 4 unit Oxybutynin Chloride (Ditropan Xl) 15 mg PO DAILY [facility] Last Admin: 08/13/17 09:57 Dose: 15 mg
--- NOTE | 2017-08-14 12:19 | RAD ---
AP VIEW CHEST: 08/14/2017 HISTORY: Dyspnea. COMPARISON: 08/11/2017 FINDINGS: AP view chest demonstrates cardiomegaly. Mild pulmonary vascular congestion is seen. No evidence o f effusions, pneumonia, or pneumothorax is seen. Multiple left-sided rib fractures again seen. IMPRESSION: 1. Multiple left-sided rib fractures. 2. Cardiomegaly. 3. No evidence of pneumothorax. POS: [facility]
[2017-08-14] MEDS: Digoxin 0.125 MG TAB PO SCH (13:11)
[2017-08-14] MEDS: Clopidogrel Bisulfate 75 MG TAB PO SCH (13:12)
[2017-08-14] MEDS: Aspirin 81 mg Enteric Coated Tablet PO SCH (13:12)
[2017-08-14] MEDS: Escitalopram Oxalate 10 mg Tablet PO SCH (13:12)
[2017-08-14] MEDS: Famotidine 20 MG TAB PO SCH (13:13)
[2017-08-14] MEDS: Furosemide 40 MG/4 ML VIAL SLOW IVP SCH (13:27)
[2017-08-14] MEDS: Atorvastatin Calcium 10 MG TAB PO SCH (20:45)
[2017-08-15] MEDS: Furosemide 40 MG/4 ML VIAL SLOW IVP SCH ×2 (05:09→13:54)
[2017-08-15] MEDS ORDERED: Potassium Chloride 20 MEQ TAB PO SCH (07:30)
[2017-08-15] MEDS ORDERED: Potassium Chloride 10 MEQ TAB PO SCH (07:30)
[2017-08-15] MEDS: Clopidogrel Bisulfate 75 MG TAB PO SCH (09:39)
[2017-08-15] MEDS: Digoxin 0.125 MG TAB PO SCH (09:39)
[2017-08-15] MEDS: Ferrous Sulfate 325 MG TAB PO SCH (09:40)
[2017-08-15] MEDS: Cyanocobalamin (Vitamin B-12) 1,000 MCG TAB PO SCH (09:40)
[2017-08-15] MEDS: Folic Acid 1 MG TAB PO SCH (09:40)
[2017-08-15] MEDS: Multivitamin W/ Minerals 1 TAB PO SCH (09:40)
[2017-08-15] MEDS: Aspirin 81 mg Enteric Coated Tablet PO SCH (09:40)
[2017-08-15] MEDS: Escitalopram Oxalate 10 mg Tablet PO SCH (09:40)
[2017-08-15] MEDS: Famotidine 20 MG TAB PO SCH (09:40)
[2017-08-15] MEDS: Docusate 100 MG CAP PO SCH ×2 (09:41→19:49)
[2017-08-15] MEDS: Enoxaparin Sodium 30 MG/0.3 ML SYRINGE SC SCH (09:41)
--- NOTE | 2017-08-15 10:08 | PDOC.PN ---
- Subjective Encounter Start Date: 08/15/17 Encounter Start Time: 08:10 pt is confused this morning but appears comfortable, no dyspnea, no fever - Objective Resuscitation Status: Resuscitation Status FULL:Full Resuscitation MAR Reviewed: Yes Vital Signs & Weight: Vital Signs (12 hours) Temp Pulse Resp BP Pulse Ox 08/15/17 09:39 64 08/15/17 08:03 97.4 F L 72 18 124/66 96 Weight Weight 190 lb 5 oz I&O: 08/14/17 08/15/17 08/16/17 06:59 06:59 06:59 Intake Total 2200 500 Balance 2200 500 Result Diagrams: 08/14/17 07:59 08/14/17 07:59 Additional Labs: Accuchecks 08/15/17 08/14/17 08/14/17 04:35 20:57 16:08 POC Glucose 128 H 157 H 166 H 08/14/17 11:31 POC Glucose 167 H Phys Exam - Physical Examination Constitutional: NAD HEENT: PERRLA, moist MMs, sclera anicteric Neck: no JVD, supple Respiratory: no wheezing, no rales, no rhonchi Cardiovascular: RRR, no significant murmur, no rub Gastrointestinal: soft, non-tender, no distention, positive bowel sounds Musculoskeletal: no edema, pulses present Neurological: moves all 4 limbs Lymphatic: no nodes Psychiatric: normal affect Skin: no rash, normal turgor Dx/Plan (1) Acute on chronic diastolic (congestive) heart failure Code(s): I50.33 - ACUTE ON CHRONIC DIASTOLIC (CONGESTIVE) HEART FAILURE Status : Acute (2) Encephalopathy acute Code(s): G93.40 - ENCEPHALOPATHY, UNSPECIFIED Status: Resolved (3) Leucopenia Code(s): D72.819 - DECREASED WHITE BLOOD CELL COUNT, UNSPECIFIED Status: Resolved (4) Sepsis Code(s): A41.9 - SEPSIS, UNSPECIFIED ORGANISM Status: Ruled-out (5) Anemia, normocytic normochromic Code(s): D64.9 - ANEMIA, UNSPECIFIED Status: Chronic (6) Anxiety and depression Code(s): F41.8 - OTHER SPECIFIED ANXIETY DISORDERS Status: Chronic (7) CAD (coronary artery disease) Code(s): I25.10 - ATHSCL HEART DISEASE OF [place] CORONARY ARTERY W/O ANG PCTRS Status: Chronic (8) CKD (chronic kidney disease) stage 3, GFR 30-59 ml/min Code(s): N18.3 - CHRONIC KIDNEY DISEASE, STAGE 3 (MODERATE) Status: Chronic Comment: (9) Dyslipidemia Code(s): E78.5 - HYPERLIPIDEMIA, UNSPECIFIED Status: Chronic (10) Takotsubo cardiomyopathy Code(s): I51.81 - TAKOTSUBO SYNDROME Status: Resolved - 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 * if stable by tomorrow, will plan for discharge to MD . Review of Systems - Review of Systems Other: unable to review due to confusional state and not reliable - Medications/Allergies Allergies/Adverse Reactions: Allergies Allergy/AdvReac Type Severity Reaction Status Date / Time latex Allergy Verified 08/11/17 21:02 Sulfa (Sulfonamide Allergy Verified 08/11/17 21:02 Antibiotics) Medications: Current Medications Acetaminophen (Tylenol) 650 mg PO Q4H PRN PRN Reason: Headache/Fever or Pain Aspirin (Ecotrin) 81 mg PO DAILY [facility] Last Admin: 08/15/17 09:40 Dose: 81 mg Atorvastatin Calcium (Lipitor) 10 mg PO HS [facility] Last Admin: 08/14/17 20:45 Dose: 10 mg Clopidogrel Bisulfate (Plavix) 75 mg PO DAILY [facility] Last Admin: 08/15/17 09:39 Dose: 75 mg Cyanocobalamin (Vitamin B-12) 1,000 mcg PO DAILY [facility] Last Admin: 08/15/17 09:40 Dose: 1,000 mcg Dextrose/Water (Dextrose 50%) 25 gm IVP PRN PRN PRN Reason: HYPOGLYCEMIA PROTOCOL Digoxin (Lanoxin) 0.125 mg PO QAM [facility] Last Admin: 08/15/17 09:39 Dose: 0.125 mg Docusate Sodium (Colace) 100 mg PO BID [facility] Last Admin: 08/15/17 09:41 Dose: Not Given Enoxaparin Sodium (Lovenox) 30 mg SC DAILY [facility] Last Admin: 08/15/17 09:41 Dose: 30 mg Escitalopram Oxalate (Lexapro) 10 mg PO DAILY [facility] Last Admin: 08/15/17 09:40 Dose: 10 mg Famotidine (Pepcid) 20 mg PO DAILY [facility] Last Admin: 08/15/17 09:40 Dose: 20 mg Ferrous Sulfate (Feosol) 325 mg PO QAM-WM [facility] Last Admin: 08/15/17 09:40 Dose: 325 mg Folic Acid (Folvite) 1 mg PO DAILY [facility] Last Admin: 08/15/17 09:40 Dose: 1 mg Furosemide (Lasix) 40 mg SLOW IVP 0600,1400 [facility] Last Admin: 08/15/17 05:09 Dose: 40 mg Glucagon (Glucagon) 1 mg IM PRN PRN PRN Reason: HYPOGLYCEMIA PROTOCOL Guaifenesin/Dextromethorphan (Robitussin Dm) 15 ml PO Q4H PRN PRN Reason: Cough Dextrose/Water (D5w) 1,000 mls @ 0 mls/hr IV INF PRN; As Directed PRN Reason: HYPOGLYCEMIA PROTOCOL Insulin Human Lispro (Humalog) 0 units SC .MODERATE SLIDING SC PRN; Protocol PRN Reason: MODERATE SLIDING SCALE Last Admin: 08/14/17 17:04 Dose: 2 unit Iron/Minerals/Multivitamins (Theragran M) 1 tab PO DAILY [facility] Last Admin: 08/15/17 09:40 Dose: 1 tab Oxybutynin Chloride (Ditropan Xl) 15 mg PO DAILY [facility] Last Admin: 08/15/17 09:40 Dose: 15 mg
[2017-08-15] MEDS: HumaLOG 300 UNITS/3 ML VIAL SC PRN ×2 (12:27→17:38)
[2017-08-15] MEDS: Atorvastatin Calcium 10 MG TAB PO SCH (19:48)
[2017-08-16] MEDS: Furosemide 40 MG/4 ML VIAL SLOW IVP SCH ×2 (05:02→05:11)
[2017-08-16 05:40] LABS: #Eosinphils 0.2 thou/uL (0.0-0.7); #Lymphocytes 2.6 thou/uL (1.20-3.40); #Monocytes 0.9 thou/uL (0.11-0.59); #Neutrophils 5.8 thou/uL (1.40-6.50); %Basophils 0.5 % (0.0-1.0); %Eosinophils 2.4 % (0.0-10.0); %Lymphocytes 26.9 % (21.0-51.0); %Monocytes 9.3 % (0.0-10.0); Hematocrit 30.2 % (36.0-47.0); Mean Platelet Volume 6.8 fL (7.4-10.4); Red Blood Cell (RBC) Count 3.27 mill/uL (4.20-5.40); White Blood Cell (WBC) Count 9.6 thou/uL (4.8-10.8)
[2017-08-16 06:04] LABS: ALT (SGPT) 17 U/L (8-55); AST (SGOT) 21 U/L (5-34); Alkaline Phosphatase 69 U/L (40-150); Anion Gap 12 mmol/L (10-20); BUN (Urea Nitrogen) 10 mg/dL (9.8-20.1); Bilirubin, Total 0.3 mg/dL (0.2-1.2); Calc. Creatinine Clearance 56 mL/min (70-130); Carbon Dioxide 35 mmol/L (23-31); Chloride 95 mmol/L (98-107); Estimated GFR-MDRD 53; Globulin 3.4 g/dL (2.4-3.5); Protein, Total 5.9 g/dL (6.0-8.3)
[2017-08-16] MEDS ORDERED: Potassium Chloride 20 MEQ TAB PO SCH (07:15)
[2017-08-16 07:59] VITALS: TEMP 98.2
[2017-08-16] MEDS: Docusate 100 MG CAP PO SCH (08:01)
[2017-08-16] MEDS: Folic Acid 1 MG TAB PO SCH (08:02)
[2017-08-16] MEDS: Famotidine 20 MG TAB PO SCH (08:02)
[2017-08-16] MEDS: Clopidogrel Bisulfate 75 MG TAB PO SCH (08:02)
[2017-08-16] MEDS: Aspirin 81 mg Enteric Coated Tablet PO SCH (08:02)
[2017-08-16] MEDS: Ferrous Sulfate 325 MG TAB PO SCH (08:02)
[2017-08-16] MEDS: Cyanocobalamin (Vitamin B-12) 1,000 MCG TAB PO SCH (08:02)
[2017-08-16] MEDS: Multivitamin W/ Minerals 1 TAB PO SCH (08:02)
[2017-08-16] MEDS: Escitalopram Oxalate 10 mg Tablet PO SCH (08:02)
[2017-08-16] MEDS: Enoxaparin Sodium 30 MG/0.3 ML SYRINGE SC SCH (08:02)
[2017-08-16] MEDS: Digoxin 0.125 MG TAB PO SCH (08:05)
[2017-08-16] MEDS ORDERED: Furosemide 40 MG TAB PO SCH (09:00)
[2017-08-16] MEDS ORDERED: Magnesium Oxide 400 MG TAB PO SCH (11:00)
--- NOTE | 2017-08-16 11:04 | PDOC.PN ---
- Subjective Encounter Start Date: 08/16/17 Encounter Start Time: 07:25 Patient seen and examined. No new complaints. No overnight events - Objective Resuscitation Status: Resuscitation Status FULL:Full Resuscitation MAR Reviewed: Yes Vital Signs & Weight: Vital Signs (12 hours) Temp Pulse Resp BP Pulse Ox 08/16/17 08:05 70 08/16/17 08:00 98.2 F 70 22 H 08/16/17 07:57 98.2 F 74 22 H 131/61 95 Weight Weight 190 lb 5 oz I&O: 08/15/17 08/16/17 08/17/17 06:59 06:59 06:59 Intake Total 500 1200 Balance 500 1200 Result Diagrams: 08/16/17 05:16 08/16/17 05:16 Additional Labs: Accuchecks 08/16/17 08/15/17 08/15/17 04:03 23:46 16:15 POC Glucose 125 H 129 H 244 H 08/15/17 11:13 POC Glucose 270 H Phys Exam - Physical Examination Constitutional: NAD HEENT: PERRLA, moist MMs, sclera anicteric Neck: no JVD, supple Respiratory: no wheezing, no rales, no rhonchi Cardiovascular: RRR, no significant murmur, no rub Gastrointestinal: soft, non-tender, no distention Musculoskeletal: no edema, pulses present Neurological: non-focal Psychiatric: normal affect Dx/Plan (1) Encephalopathy acute Code(s): G93.40 - ENCEPHALOPATHY, UNSPECIFIED Status: Resolved (2) Leucopenia Code(s): D72.819 - DECREASED WHITE BLOOD CELL COUNT, UNSPECIFIED Status: Resolved (3) Sepsis Code(s): A41.9 - SEPSIS, UNSPECIFIED ORGANISM Status: Ruled-out (4) Anemia, normocytic normochromic Code(s): D64.9 - ANEMIA, UNSPECIFIED Status: Chronic (5) Anxiety and depression Code(s): F41.8 - OTHER SPECIFIED ANXIETY DISORDERS Status: Chronic (6) CAD (coronary artery disease) Code(s): I25.10 - ATHSCL HEART DISEASE OF [place] CORONARY ARTERY W/O ANG PCTRS Status: Chronic (7) CKD (chronic kidney disease) stage 3, GFR 30-59 ml/min Code(s): N18.3 - CHRONIC KIDNEY DISEASE, STAGE 3 (MODERATE) Status: Chronic Comment: (8) Dyslipidemia Code(s): E78.5 - HYPERLIPIDEMIA, UNSPECIFIED Status: Chronic (9) Takotsubo cardiomyopathy Code(s): I51.81 - TAKOTSUBO SYNDROME Status: Resolved (10) Acute on chronic diastolic (congestive) heart failure Code(s): I50.33 - ACUTE ON CHRONIC DIASTOLIC (CONGESTIVE) HEART FAILURE Status : Acute - Plan cont current plan of care * medication reviewed as below * symptomatic treatment. * see discharge summery * medically stable. * orally replace mg and potassium. Review of Systems - Review of Systems ENT: negative: Ear Pain, Ear Discharge, Nose Pain, Nose Discharge, Nose Congestion, Mouth Pain, Mouth Swelling, Throat Pain, Throat Swelling, Other Respiratory: negative: Cough, Dry, Shortness of Breath, Hemoptysis, SOB with Excertion, Pleuritic Pain, Sputum, Wheezing Cardiovascular: negative: Chest Pain, Palpitations, Orthopnea, Paroxysmal Noc. Dyspnea, Edema, Light Headedness, Other Gastrointestinal: negative: Nausea, Vomiting, Abdominal Pain, Diarrhea, Constipation, Melena, Hematochezia, Other Genitourinary: negative: Dysuria, Frequency, Incontinence, Hematuria, Retention , Other - Medications/Allergies Allergies/Adverse Reactions: Allergies Allergy/AdvReac Type Severity Reaction Status Date / Time latex Allergy Verified 08/11/17 21:02 Sulfa (Sulfonamide Allergy Verified 08/11/17 21:02 Antibiotics) Medications: Current Medications Acetaminophen (Tylenol) 650 mg PO Q4H PRN PRN Reason: Headache/Fever or Pain Aspirin (Ecotrin) 81 mg PO DAILY [facility] Last Admin: 08/16/17 08:02 Dose: 81 mg Atorvastatin Calcium (Lipitor) 10 mg PO HS [facility] Last Admin: 08/15/17 19:48 Dose: 10 mg Clopidogrel Bisulfate (Plavix) 75 mg PO DAILY [facility] Last Admin: 08/16/17 08:02 Dose: 75 mg Cyanocobalamin (Vitamin B-12) 1,000 mcg PO DAILY [facility] Last Admin: 08/16/17 08:02 Dose: 1,000 mcg Dextrose/Water (Dextrose 50%) 25 gm IVP PRN PRN PRN Reason: HYPOGLYCEMIA PROTOCOL Digoxin (Lanoxin) 0.125 mg PO QAM [facility] Last Admin: 08/16/17 08:05 Dose: 0.125 mg Docusate Sodium (Colace) 100 mg PO BID [facility] Last Admin: 08/16/17 08:01 Dose: 100 mg Enoxaparin Sodium (Lovenox) 30 mg SC DAILY [facility] Last Admin: 08/16/17 08:02 Dose: 30 mg Escitalopram Oxalate (Lexapro) 10 mg PO DAILY [facility] Last Admin: 08/16/17 08:02 Dose: 10 mg Famotidine (Pepcid) 20 mg PO DAILY [facility] Last Admin: 08/16/17 08:02 Dose: 20 mg Ferrous Sulfate (Feosol) 325 mg PO QAM-WM [facility] Last Admin: 08/16/17 08:02 Dose: 325 mg Folic Acid (Folvite) 1 mg PO DAILY [facility] Last Admin: 08/16/17 08:02 Dose: 1 mg Furosemide (Lasix) 40 mg PO 0900,1400 [facility] Last Admin: 08/16/17 08:02 Dose: 40 mg Glucagon (Glucagon) 1 mg IM PRN PRN PRN Reason: HYPOGLYCEMIA PROTOCOL Guaifenesin/Dextromethorphan (Robitussin Dm) 15 ml PO Q4H PRN PRN Reason: Cough Dextrose/Water (D5w) 1,000 mls @ 0 mls/hr IV INF PRN; As Directed PRN Reason: HYPOGLYCEMIA PROTOCOL Insulin Human Lispro (Humalog) 0 units SC .MODERATE SLIDING SC PRN; Protocol PRN Reason: MODERATE SLIDING SCALE Last Admin: 08/15/17 17:38 Dose: 4 unit Iron/Minerals/Multivitamins (Theragran M) 1 tab PO DAILY [facility] Last Admin: 08/16/17 08:02 Dose: 1 tab Magnesium Oxide (Magnesium Oxide) 800 mg PO NOW [facility] Stop: 08/16/17 12:00 Oxybutynin Chloride (Ditropan Xl) 15 mg PO DAILY [facility] Last Admin: 08/16/17 08:09 Dose: 15 mg
[2017-08-16 11:18] VITALS: BP 136/66
--- NOTE | 2017-08-16 12:46 | DIS ---
DATE OF ADMISSION: 08/11/2017 DATE OF DISCHARGE: 08/16/2017 PRIMARY CARE PHYSICIAN: Rafael Crespo M.D. DISCHARGE DISPOSITION: [facility]. PRIMARY DISCHARGE DIAGNOSES: 1. Acute on chronic diastolic heart failure, improved. 2. Leukopenia, resolved with Neupogen. 3. Acute encephalopathy, improved with baseline status. 3. Hypokalemia. 4. Hypomagnesemia. SECONDARY DISCHARGE DIAGNOSES: Normocytic anemia, anxiety, depression, coronary artery disease, sen ile dementia, chronic kidney disease stage 3, coronary artery disease, dyslipidemia, history of [place] t[place]o cardiomyopathy, and physical deconditioning. PRIMARY PROCEDURE/OPERATION: None. RADIOLOGICAL INVESTIGATION: CT brain negative for any acute intracranial process. Chest x-ray unre markable other than cardiomegaly. Echocardiography showed diastolic dysfunction. SIGNIFICANT LABORATORY DATA: WBC 9.6, hemoglobin 9.7, platelets 349. Sodium 139, potassium 3.3, BU N 10, creatinine 0.99. LFTs normal. BNP 771.3, magnesium 1.1. Urinalysis normal. Blood culture n egative. Urine culture negative. Respiratory virus panel negative. DISCHARGE MEDICATIONS: Aspirin 81 mg p.o. daily, Lipitor 10 mg p.o. at bedtime, Coreg 3.125 mg p.o. b.i.d., Plavix 75 mg p.o. daily, Flexeril 10 mg t.i.d. p.r.n., digoxin 250 mcg p.o. daily, Lexapro 10 mg daily, Lasix 20 mg p.o. b.i.d., gabapentin 100 mg t.i.d., lisinopril 2.5 mg p.o. daily, magnes ium oxide 250 mg p.o. daily, Theragran 1 tablet p.o. daily, Ditropan XL 15 mg p.o. daily, Protonix 2 0 mg p.o. daily, MiraLax 17 grams p.o. daily, potassium chloride 10 mEq p.o. daily, oxycodone 10 mg p.o. q.4 hourly p.r.n., tramadol 50 mg q.i.d. p.r.n. CONTRAINDICATIONS: None. CODE STATUS: FULL CODE. 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 Wright was consulted while in hospital. ALLERGIES: SULFA DRUGS. DISCHARGE PLAN: Post hospital, the patient will follow up with primary care physician. HOSPITAL COURSE: An 86-year-old female who was admitted by Dr. Stroud, please see his H\T\P fo r further details. This patient had recent hospitalization, at that time she had refracture and she was discharged to swing bed. She did not have any significant improvement, and that is why she was discharged to [facility]. Over there, the patient was found with agitation and she was altered and that is why they sent her b ack to the ER. In the emergency room, she was having low grade fever and leukopenia. This patient was not having any obvious source of infection. Her BNP was elevated. This patient was also having acute on chronic diastolic heart failure. This patient also had acute kidney failure. During this admission, we did echocardiography and confirmed that her EF is improved and her Takotsu dayana cardiomyopathy has been resolved. This patient had echocardiography that was normal and diastolic dysfunction. She did not have any s ource of infection. Dr. Wright started on filgrastim and with that her leukopenia resolved. She had abnormal electrolytes that were replaced before discharge. While in hospital, she received IV fluid and that is why she developed volume overload and that is w hy we stopped IV fluid and after that we gave her Lasix and with Lasix and she had significant impro vement. The patient seen and examined at bedside today. Please see my progress note from today for further details. In short, the patient had acute kidney failure and that is why she initially received IV fluid and t hat made her volume overload and we started on Lasix and that made her kidney failure better and her renal function by the time of discharge completely normal. Her pulmonary edema is resolved. Her e lectrolytes will be replaced orally. Her leukopenia resolved with filgrastim therapy. She does not have any infection. She cannot go ho me because family member cannot take care of her and that is why she needs to be on [facility]. Paperwork for discharge done. Discharge medication reconciliation done. Total time spent on discha rge day more than 30 minutes.
== END 2017-08-16 11:52 | DRG 291 ==
LOC: ERS 15:41 → T4-A 20:43
PROVIDERS: ADMIT Internal Medicine; ATTEND Internal Medicine
DX: I13.0 Hypertensive heart and chronic kidney disease with heart failure and stage 1 through stage 4 chronic kidney disease, or unspecified chronic kidney disease (principal); I50.33 Acute on chronic diastolic (congestive) heart failure; N17.9 Acute kidney failure, unspecified; G93.40 Encephalopathy, unspecified; E87.1 Hypo-osmolality and hyponatremia; N18.3 Chronic kidney disease, stage 3 (moderate); E87.6 Hypokalemia; E83.42 Hypomagnesemia; D64.9 Anemia, unspecified; F41.9 Anxiety disorder, unspecified; F32.9 Major depressive disorder, single episode, unspecified; I25.10 Atherosclerotic heart disease of native coronary artery without angina pectoris; F03.90 Unspecified dementia, unspecified severity, without behavioral disturbance, psychotic disturbance, mood disturbance, and anxiety; E78.5 Hyperlipidemia, unspecified; E86.0 Dehydration; M17.9 Osteoarthritis of knee, unspecified; E11.22 Type 2 diabetes mellitus with diabetic chronic kidney disease
CPT/HCPCS: 36415; 36416; 51701; 70450; 71010; 80048; 80053; 81003; 82533; 82553; 83605; 83735; 83880; 84484; 85025; 85060; 87040; 87086; 87633; 93005; 93306; 94760; 96361; 96365; 96367; A4353; G8978-GP-CM; G8979-GP-CL; G8987-GO-CL; G8988-GO-CJ; J1442; J1650; J1940; J2543; J3370; J7050

== ENCOUNTER 2017-10-01 11:34 | Inpatient (IN) | payer MEDICARE, BC ==
[2017-10-01 12:21] LABS: #Basophils 0.1 thou/uL (0.0-0.2); #Eosinphils 0.2 thou/uL (0.0-0.7); #Lymphocytes 2.9 thou/uL (1.20-3.40); #Monocytes 1.1 thou/uL (0.11-0.59); #Neutrophils 8.7 thou/uL (1.40-6.50); %Basophils 0.4 % (0.0-1.0); %Eosinophils 1.3 % (0.0-10.0); %Lymphocytes 22.5 % (21.0-51.0); %Monocytes 8.8 % (0.0-10.0); Hematocrit 25.1 % (36.0-47.0); Mean Platelet Volume 7.4 fL (7.4-10.4); Red Blood Cell (RBC) Count 2.81 mill/uL (4.20-5.40)
[2017-10-01 12:42] LABS: Lactic Acid - Sepsis 1.1 mmol/L (0.5-2.2)
[2017-10-01 12:46] LABS: ALT (SGPT) 20 U/L (8-55); AST (SGOT) 35 U/L (5-34); Alkaline Phosphatase 63 U/L (40-150); Anion Gap 17 mmol/L (10-20); BUN (Urea Nitrogen) 24 mg/dL (9.8-20.1); Bilirubin, Total 0.3 mg/dL (0.2-1.2); CK (CPK) 46 U/L (29-168); Calc. Creatinine Clearance 0 mL/min (70-130); Calcium 9.2 mg/dL (7.8-10.44); Carbon Dioxide 24 mmol/L (23-31); Chloride 97 mmol/L (98-107); Estimated GFR-MDRD 36; Globulin 4.7 g/dL (2.4-3.5); Lipase 36 U/L (8-78); Protein, Total 7.5 g/dL (6.0-8.3)
[2017-10-01 12:50] LABS: Troponin I 0.062 ng/mL (< 0.028)
[2017-10-01 12:54] LABS: Bilirubin Negative (Negative); Blood, Urine Trace (Negative); Glucose, Urine (Dipstick) Negative (Negative); Ketone, Urine Negative (Negative); Nitrite Positive (Negative); Protein, Urine (Dipstick) 30 mg/dL (Neg-Trace)
[2017-10-01 12:57] LABS: Bacteria/HPF 2+ HPF (None Seen); Hyaline Casts/LPF 7-10 HYALINE CAST LPF (0-3 Hyaline); RBC/HPF 0-3 HPF (0-3)
--- NOTE | 2017-10-01 13:09 | CT ---
HEAD CT NONCONTRAST: COMPARISON: 08/11/17. INDICATION: Altered mental status. FINDINGS: There is prominence of the ventricular system. No midline shift. No evidence of acute intracranial hemorrhage. There is mild to moderate chronic microvascular ischemic disease. 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 IMPRESSION: Stable head CT, without intracranial hemorrhage or mass effect. POS: [facility]
[2017-10-01 13:14] LABS: Yeast-All Forms None Seen HPF (None Seen)
[2017-10-01] MEDS ORDERED: cefTRIAXone\\ROCEPHIN 2 GM, Admixture Fee 1 EACH in Sodium Chloride 0.9% 100 ML IVPB SCH (14:00)
[2017-10-01] MEDS ORDERED: HYDROcodone/Acetaminophen 5/325 mg Tablet ONE (14:27)
[2017-10-01] MEDS ORDERED: Dextrose 50% Abboject 50 ML SYRINGE SLOW IVP PRN (16:25)
[2017-10-01] MEDS ORDERED: HYDROcodone/Acetaminophen 5/325 mg Tablet PO PRN (16:25)
[2017-10-01] MEDS ORDERED: Dextrose 5% in Water 1,000 ML IV PRN (16:25)
[2017-10-01] MEDS ORDERED: Heparin 5,000 UNITS/ML VIAL SC SCH (16:45)
--- NOTE | 2017-10-01 18:33 | HP ---
DATE OF ADMISSION: 10/01/2017 CHIEF COMPLAINT: Altered mental status. HISTORY OF PRESENT ILLNESS: The patient is an 86-year-old female from [facility]. She was found to be confused and was sent out to the emergency room for further evaluation. Brown cuevas did not have any fever or chills. She complained about a lot of pain in her both knees. At the t jane of emergency room visit evaluation, she was found to have UTI, which is probably the source of h er confusion. PAST MEDICAL HISTORY: Positive for: 1. Subarachnoid hemorrhage. 2. History of left hemopneumothorax. 3. History of Takotsubo cardiomyopathy with full recovery. 4. Diabetes mellitus type 2. 5. Dyslipidemia. 6. History of diverticulitis. 7. Osteoarthritis. 8. History of rib fractures and maxillary sinus fractures post fall in 06/2017. PAST SURGICAL HISTORY: 1. Hysterectomy. 2. Cholecystectomy. FAMILY HISTORY: Unobtainable secondary to the patient's mental condition. ALLERGIES: SULFA, MORPHINE and LATEX. MEDICATIONS: Please refer to her medications list. SOCIAL HISTORY: She does not have any history of cigarette smoking, alcohol intake or any illicit d rug use. REVIEW OF SYSTEMS: Unobtainable secondary to the patient's mental inability to communicate. PHYSICAL EXAMINATION: VITAL SIGNS: Her blood pressure is 109/79, pulse is 55, respiratory rate is 16, O2 saturation is 10 0% on room air. HEENT: Atraumatic, normocephalic. Eyes are PERRLA. Sclerae are nonicteric. Conjunctivae pinkish. Oral mucosa is dry. NECK: Supple, no lymphadenopathy. Thyroid is not palpable. LUNGS: Clear. HEART: S1, S2 normal. No S3, no S4, no any murmur. ABDOMEN: Soft, nontender, nondistended, obese. Bowel sounds are present. No organomegaly. EXTREMITIES: She has osteoarthritic changes in both knees, very painful to flexion or extension. P ulses on both tibialis posterior and dorsalis pedis arteries are similar bilaterally and good. NEUROLOGIC: She is awake. She is alert and oriented x2. There are no any motor deficits. Cranial nerves are intact. LABORATORY DATA: Showed white count of 13.0, hemoglobin 8.2, hematocrit 25.1 and platelet count is 440. Sodium of 132, potassium 5.7, chloride 97, CO2 24, BUN 24, creatinine 1.39, glucose 221, tropo willie 0.062, albumin 2.8, globulin 4.7, lipase 36. Urine showed 30 proteins, trace of blood, positive for nitrites, esterase large amount and WBCs 50 to too numerous to count, 4-6 squamous epithelial c ells, 2+ bacteria and 7-10 hyaline casts[address] No yeasts. CT of the brain was done, which did not show any acute abnormalities. There was prominence of the ventricular system, [id number] chronic m icrovascular ischemic changes and stable cavitary lacunar infarction of the right cerebellar hemisph ere. IMPRESSION: 1. Altered mental status, most likely secondary to urinary tract infection at this point with no ac three affiliated changes on CT of the brain. 2. Urinary tract infection. We will obtain cultures on her urine and blood and she will have Rocep hin 1 g IV piggyback done 1 dose in the emergency room and then we will continue. 3. Hyperkalemia. She will have Kayexalate 30 mL and then potassium will be checked again. 4. Dehydration. We will give her IV fluids, normal saline at 75 mL per hour since she had a histor y of some congestive heart failure. 5. Normocytic anemia with hemoglobin of 8.2. We will continue to follow the level. 6. Hyponatremia and hypochloremia. I think this is secondary to dehydration. It should improve wi th IV fluids. 7. Renal insufficiency with BUN up to 24 and creatinine 1.39. We will start her on IV fluids as me ntioned above. 8. Diabetes mellitus type 2. We will do Accu-Cheks a.c. and at bedtime and cover her with mild sli ding scale. 9. Elevated troponin. We will obtain 2 additional sets of cardiac enzymes and she will be admitted fulltime to the medical floor. Her condition is fair. Code is full. Surrogate decision maker is her and we will do DVT prophylaxis with heparin 5000 subcutaneous every 8 hours and she will be on peptic ulcer prophylaxis with 20 mg of Pepcid twice a day p.o.
[2017-10-01] MEDS: Sodium Chloride 0.9% 1,000 ML IV SCH (18:39)
[2017-10-01] MEDS ORDERED: FLU VACC TS2017-18 (>65YR) 0.5 ML SYRINGE IM ONE (21:00)
[2017-10-01] MEDS: Heparin 5,000 UNITS/ML VIAL SC SCH (21:00)
[2017-10-01] MEDS: Famotidine 20 MG TAB PO SCH (21:59)
[2017-10-02 05:19] LABS: #Eosinphils 0.1 thou/uL (0.0-0.7); #Lymphocytes 2.1 thou/uL (1.20-3.40); #Monocytes 0.7 thou/uL (0.11-0.59); #Neutrophils 4.7 thou/uL (1.40-6.50); %Basophils 0.2 % (0.0-1.0); %Eosinophils 1.8 % (0.0-10.0); %Lymphocytes 26.8 % (21.0-51.0); %Monocytes 9.4 % (0.0-10.0); Hematocrit 25.5 % (36.0-47.0); Mean Platelet Volume 7.8 fL (7.4-10.4); Red Blood Cell (RBC) Count 2.87 mill/uL (4.20-5.40); White Blood Cell (WBC) Count 7.6 thou/uL (4.8-10.8)
[2017-10-02 05:31] LABS: Anion Gap 15 mmol/L (10-20); BUN (Urea Nitrogen) 22 mg/dL (9.8-20.1); Calc. Creatinine Clearance 42 mL/min (70-130); Calcium 9.1 mg/dL (7.8-10.44); Carbon Dioxide 26 mmol/L (23-31); Chloride 101 mmol/L (98-107); Estimated GFR-MDRD 41
[2017-10-02] MEDS ORDERED: Cyclobenzaprine 10 MG TAB PO PRN (07:33)
[2017-10-02] MEDS ORDERED: traMADol HCl 50 MG TAB PO PRN (07:33)
[2017-10-02] MEDS ORDERED: oxyCODONE 5 MG TAB PO PRN (07:54)
[2017-10-02] MEDS: Oxybutynin ER 5 MG TAB PO SCH (08:59)
[2017-10-02] MEDS: Gabapentin 100 MG CAP PO SCH ×3 (09:00→20:29)
[2017-10-02] MEDS: Multivit, Therapeutic 1 TAB PO SCH (09:00)
[2017-10-02] MEDS: Digoxin 0.25 MG TAB PO SCH (09:00)
[2017-10-02] MEDS: Aspirin 81 mg Enteric Coated Tablet PO SCH (09:00)
[2017-10-02] MEDS: Clopidogrel Bisulfate 75 MG TAB PO SCH (09:01)
[2017-10-02] MEDS: Carvedilol 3.125 MG TAB PO SCH ×2 (09:01→17:33)
[2017-10-02] MEDS: Escitalopram Oxalate 10 mg Tablet PO SCH (09:01)
[2017-10-02] MEDS: Famotidine 20 MG TAB PO SCH ×2 (09:01→20:29)
[2017-10-02] MEDS: Heparin 5,000 UNITS/ML VIAL SC SCH ×3 (09:03→20:29)
--- NOTE | 2017-10-02 11:45 | PDOC.PN ---
- Subjective Encounter Start Date: 10/02/17 Encounter Start Time: 10:50 -: old records requested/rev Patient seen and examined. No new complaints. No overnight events - Objective Resuscitation Status: Resuscitation Status FULL:Full Resuscitation MAR Reviewed: Yes Vital Signs & Weight: Vital Signs (12 hours) Temp Pulse Resp BP Pulse Ox 10/02/17 09:00 63 10/02/17 08:00 98.2 F 63 14 96 10/02/17 07:49 98.2 F 58 L 16 112/57 L 98 10/02/17 05:41 98.4 F 72 18 104/50 L 95 10/02/17 00:22 98.2 F 60 16 118/60 98 I&O: 10/01/17 10/02/17 10/03/17 06:59 06:59 06:59 Intake Total 1500 Balance 1500 Result Diagrams: 10/02/17 04:45 10/02/17 04:45 Additional Labs: Accuchecks 10/02/17 10/01/17 10/01/17 05:45 19:39 18:14 POC Glucose 160 H 179 H 183 H Phys Exam - Physical Examination Constitutional: NAD HEENT: PERRLA, moist MMs, sclera anicteric Neck: no JVD, supple Respiratory: no wheezing, no rales, no rhonchi Cardiovascular: RRR, no significant murmur, no rub Gastrointestinal: soft, non-tender, no distention, positive bowel sounds Musculoskeletal: no edema, pulses present Neurological: non-focal, normal sensation, moves all 4 limbs Psychiatric: normal affect, A&O x 3 Skin: no rash, normal turgor Dx/Plan (1) Acute kidney failure Status: Acute (2) Demand ischemia Code(s): I24.8 - OTHER FORMS OF ACUTE ISCHEMIC HEART DISEASE Status: Acute (3) Encephalopathy acute Code(s): G93.40 - ENCEPHALOPATHY, UNSPECIFIED Status: Acute (4) Hyperkalemia Code(s): E87.5 - HYPERKALEMIA Status: Acute (5) UTI (urinary tract infection) Status: Acute (6) Anemia, normocytic normochromic Code(s): D64.9 - ANEMIA, UNSPECIFIED Status: Chronic (7) Anxiety and depression Code(s): F41.8 - OTHER SPECIFIED ANXIETY DISORDERS Status: Chronic (8) CAD (coronary artery disease) Code(s): I25.10 - ATHSCL HEART DISEASE OF [place] CORONARY ARTERY W/O ANG PCTRS Status: Chronic (9) CKD (chronic kidney disease) stage 3, GFR 30-59 ml/min Code(s): N18.3 - CHRONIC KIDNEY DISEASE, STAGE 3 (MODERATE) Status: Chronic Comment: (10) Diabetes type 2, controlled Code(s): E11.9 - TYPE 2 DIABETES MELLITUS WITHOUT COMPLICATIONS Status: Chronic (11) Dyslipidemia Code(s): E78.5 - HYPERLIPIDEMIA, UNSPECIFIED Status: Chronic - Plan cont current plan of care, continue antibiotics, PT/OT * medication reviewed as below * symptomatic treatment * continue current iv antibiotic. * start PT * follow culture Review of Systems - Review of Systems ENT: negative: Ear Pain, Ear Discharge, Nose Pain, Nose Discharge, Nose Congestion, Mouth Pain, Mouth Swelling, Throat Pain, Throat Swelling, Other Respiratory: negative: Cough, Dry, Shortness of Breath, Hemoptysis, SOB with Excertion, Pleuritic Pain, Sputum, Wheezing Cardiovascular: negative: Chest Pain, Palpitations, Orthopnea, Paroxysmal Noc. Dyspnea, Edema, Light Headedness, Other Gastrointestinal: negative: Nausea, Vomiting, Abdominal Pain, Diarrhea, Constipation, Melena, Hematochezia, Other Genitourinary: negative: Dysuria, Frequency, Incontinence, Hematuria, Retention , Other Musculoskeletal: negative: Neck Pain, Shoulder Pain, Arm Pain, Back Pain, Hand Pain, Leg Pain, Foot Pain, Other - Medications/Allergies Allergies/Adverse Reactions: Allergies Allergy/AdvReac Type Severity Reaction Status Date / Time morphine Allergy Unknown Verified 10/01/17 20:01 latex Allergy Verified 08/11/17 21:02 Sulfa (Sulfonamide Allergy Verified 08/11/17 21:02 Antibiotics) Medications: Current Medications Hydrocodone Bitart/Acetaminophen ([place] 5/325) 1 tab PO Q4H PRN PRN Reason: Moderate Pain (4-6) Aspirin (Ecotrin) 81 mg PO DAILY [facility] Last Admin: 10/02/17 09:00 Dose: 81 mg Atorvastatin Calcium (Lipitor) 10 mg PO [facility] Carvedilol (Coreg) 3.125 mg PO BID[facility] Last Admin: 10/02/17 09:01 Dose: 3.125 mg Clopidogrel Bisulfate (Plavix) 75 mg PO DAILY [facility] Last Admin: 10/02/17 09:01 Dose: 75 mg Cyclobenzaprine HCl (Flexeril) 10 mg PO TID PRN PRN Reason: Muscle Spasm Dextrose/Water (Dextrose 50%) 25 gm SLOW IVP PRN PRN PRN Reason: Hypoglycemia Digoxin (Lanoxin) 0.25 mg PO DAILY [facility] Last Admin: 10/02/17 09:00 Dose: 0.25 mg Escitalopram Oxalate (Lexapro) 10 mg PO DAILY [facility] Last Admin: 10/02/17 09:01 Dose: 10 mg Famotidine (Pepcid) 20 mg PO BID [facility] Last Admin: 10/02/17 09:01 Dose: 20 mg Gabapentin (Neurontin) 100 mg PO TID [facility] Last Admin: 10/02/17 09:00 Dose: 100 mg Glucagon (Glucagon) 1 mg IM PRN PRN PRN Reason: Hypoglycemia Heparin Sodium (Porcine) (Heparin) 5,000 units SC TID [facility] Last Admin: 10/02/17 09:03 Dose: 5,000 units Sodium Chloride (Normal Saline 0.9%) 1,000 mls @ 75 mls/hr IV .[id number] [facility] Last Admin: 10/01/17 18:39 Dose: 1,000 mls Dextrose/Water (D5w) 1,000 mls @ 0 mls/hr IV .Q0M PRN; As Directed PRN Reason: Hypoglycemia Ceftriaxone Sodium 1 gm/ (Sodium Chloride) 100 mls @ 200 mls/hr IVPB Q24HR [facility] Insulin Human Lispro (Humalog) 0 units SC .MILD SLIDING SCALE PRN PRN Reason: Mild Correctional Scale Multivitamins (Theragran) 1 tab PO DAILY [facility] Last Admin: 10/02/17 09:00 Dose: 1 tab Oxybutynin Chloride (Ditropan Xl) 15 mg PO DAILY [facility] Last Admin: 10/02/17 08:59 Dose: 15 mg Oxycodone HCl (Oxycodone Ir) 10 mg PO Q4H PRN PRN Reason: Severe Pain (7-10) Pantoprazole Sodium (Protonix) 20 mg PO DAILY [facility] Last Admin: 10/02/17 09:02 Dose: 20 mg Tramadol HCl (Ultram) 50 mg PO QID PRN PRN Reason: Pain
[2017-10-02] MEDS: cefTRIAXone\\ROCEPHIN 1 GM in Sodium Chloride 0.9% 100 ML IVPB SCH (14:28)
[2017-10-02] MEDS: Sodium Chloride 0.9% 1,000 ML IV SCH (14:31)
[2017-10-02] MEDS: HumaLOG 300 UNITS/3 ML VIAL SC PRN (17:34)
[2017-10-02] MEDS: Atorvastatin Calcium 10 MG TAB PO SCH (20:29)
[2017-10-03] MEDS: Sodium Chloride 0.9% 1,000 ML IV SCH ×3 (04:45→20:36)
[2017-10-03] MEDS: HumaLOG 300 UNITS/3 ML VIAL SC PRN ×2 (04:47→12:27)
[2017-10-03 06:08] LABS: #Eosinphils 0.1 thou/uL (0.0-0.7); #Lymphocytes 1.8 thou/uL (1.20-3.40); #Monocytes 0.8 thou/uL (0.11-0.59); #Neutrophils 4.9 thou/uL (1.40-6.50); %Basophils 0.6 % (0.0-1.0); %Eosinophils 1.7 % (0.0-10.0); %Lymphocytes 23.1 % (21.0-51.0); %Monocytes 10.3 % (0.0-10.0); Hematocrit 25.7 % (36.0-47.0); Mean Platelet Volume 7.3 fL (7.4-10.4); Red Blood Cell (RBC) Count 2.88 mill/uL (4.20-5.40); White Blood Cell (WBC) Count 7.6 thou/uL (4.8-10.8)
[2017-10-03 06:40] LABS: ALT (SGPT) 15 U/L (8-55); AST (SGOT) 14 U/L (5-34); Alkaline Phosphatase 55 U/L (40-150); Anion Gap 12 mmol/L (10-20); BUN (Urea Nitrogen) 13 mg/dL (9.8-20.1); Bilirubin, Total 0.2 mg/dL (0.2-1.2); Calc. Creatinine Clearance 51 mL/min (70-130); Calcium 9.2 mg/dL (7.8-10.44); Carbon Dioxide 28 mmol/L (23-31); Chloride 104 mmol/L (98-107); Estimated GFR-MDRD 51; Globulin 3.9 g/dL (2.4-3.5); Protein, Total 6.7 g/dL (6.0-8.3)
[2017-10-03] MEDS: Heparin 5,000 UNITS/ML VIAL SC SCH ×3 (07:55→20:37)
[2017-10-03] MEDS: Oxybutynin ER 5 MG TAB PO SCH (07:55)
[2017-10-03] MEDS: Multivit, Therapeutic 1 TAB PO SCH (07:56)
[2017-10-03] MEDS: Famotidine 20 MG TAB PO SCH ×2 (07:56→20:36)
[2017-10-03] MEDS: Clopidogrel Bisulfate 75 MG TAB PO SCH (07:56)
[2017-10-03] MEDS: Gabapentin 100 MG CAP PO SCH ×3 (07:56→20:36)
[2017-10-03] MEDS: Digoxin 0.25 MG TAB PO SCH (07:56)
[2017-10-03] MEDS: Escitalopram Oxalate 10 mg Tablet PO SCH (07:56)
[2017-10-03] MEDS: Carvedilol 3.125 MG TAB PO SCH ×2 (07:56→17:27)
[2017-10-03] MEDS: Aspirin 81 mg Enteric Coated Tablet PO SCH (07:56)
--- NOTE | 2017-10-03 12:33 | PDOC.PN ---
- Subjective Encounter Start Date: 10/03/17 Encounter Start Time: 07:50 Patient seen and examined. No new complaints. No overnight events - Objective Resuscitation Status: Resuscitation Status FULL:Full Resuscitation MAR Reviewed: Yes Vital Signs & Weight: Vital Signs (12 hours) Temp Pulse Resp BP Pulse Ox 10/03/17 08:00 98.5 F 63 18 134/68 93 L 10/03/17 07:56 67 10/03/17 04:00 98.4 F 66 16 161/69 H 94 L I&O: 10/02/17 10/03/17 10/04/17 06:59 06:59 06:59 Intake Total 1500 1140 Output Total 2 Balance 1500 1138 Result Diagrams: 10/03/17 05:46 10/03/17 05:46 Additional Labs: Accuchecks 10/03/17 10/03/17 10/02/17 12:18 04:46 20:33 POC Glucose 161 H 175 H 181 H 10/02/17 16:01 POC Glucose 189 H Phys Exam - Physical Examination Constitutional: NAD HEENT: PERRLA, moist MMs, sclera anicteric Neck: no JVD, supple Respiratory: no wheezing, no rales, no rhonchi Cardiovascular: RRR, no significant murmur, no rub Gastrointestinal: soft, non-tender, no distention, positive bowel sounds Musculoskeletal: no edema, pulses present Neurological: non-focal, normal sensation Psychiatric: normal affect Skin: no rash, normal turgor Dx/Plan (1) Acute kidney failure Status: Resolved (2) Demand ischemia Code(s): I24.8 - OTHER FORMS OF ACUTE ISCHEMIC HEART DISEASE Status: Acute (3) Encephalopathy acute Code(s): G93.40 - ENCEPHALOPATHY, UNSPECIFIED Status: Resolved (4) Hyperkalemia Code(s): E87.5 - HYPERKALEMIA Status: Resolved (5) UTI (urinary tract infection) Status: Acute (6) Anemia, normocytic normochromic Code(s): D64.9 - ANEMIA, UNSPECIFIED Status: Chronic (7) Anxiety and depression Code(s): F41.8 - OTHER SPECIFIED ANXIETY DISORDERS Status: Chronic (8) CAD (coronary artery disease) Code(s): I25.10 - ATHSCL HEART DISEASE OF [place] CORONARY ARTERY W/O ANG PCTRS Status: Chronic (9) CKD (chronic kidney disease) stage 3, GFR 30-59 ml/min Code(s): N18.3 - CHRONIC KIDNEY DISEASE, STAGE 3 (MODERATE) Status: Chronic Comment: (10) Diabetes type 2, controlled Code(s): E11.9 - TYPE 2 DIABETES MELLITUS WITHOUT COMPLICATIONS Status: Chronic (11) Dyslipidemia Code(s): E78.5 - HYPERLIPIDEMIA, UNSPECIFIED Status: Chronic - Plan cont current plan of care, continue antibiotics * continue rocephin * tomorrow ceftin * will discharge tomorrow to SNU * medication reviewed as below * symptomatic treatment. Review of Systems - Review of Systems Other: not reliable today as she appears confused - Medications/Allergies Allergies/Adverse Reactions: Allergies Allergy/AdvReac Type Severity Reaction Status Date / Time morphine Allergy Unknown Verified 10/01/17 20:01 latex Allergy Verified 08/11/17 21:02 Sulfa (Sulfonamide Allergy Verified 08/11/17 21:02 Antibiotics) Medications: Current Medications Hydrocodone Bitart/Acetaminophen ([place] 5/325) 1 tab PO Q4H PRN PRN Reason: Moderate Pain (4-6) Last Admin: 10/02/17 13:00 Dose: 1 tab Aspirin (Ecotrin) 81 mg PO DAILY [facility] Last Admin: 10/03/17 07:56 Dose: 81 mg Atorvastatin Calcium (Lipitor) 10 mg PO HS [facility] Last Admin: 10/02/17 20:29 Dose: 10 mg Carvedilol (Coreg) 3.125 mg PO BID-[facility] Last Admin: 10/03/17 07:56 Dose: 3.125 mg Clopidogrel Bisulfate (Plavix) 75 mg PO DAILY [facility] Last Admin: 10/03/17 07:56 Dose: 75 mg Cyclobenzaprine HCl (Flexeril) 10 mg PO TID PRN PRN Reason: Muscle Spasm Dextrose/Water (Dextrose 50%) 25 gm SLOW IVP PRN PRN PRN Reason: Hypoglycemia Digoxin (Lanoxin) 0.25 mg PO DAILY [facility] Last Admin: 10/03/17 07:56 Dose: 0.25 mg Escitalopram Oxalate (Lexapro) 10 mg PO DAILY [facility] Last Admin: 10/03/17 07:56 Dose: 10 mg Famotidine (Pepcid) 20 mg PO BID [facility] Last Admin: 10/03/17 07:56 Dose: 20 mg Gabapentin (Neurontin) 100 mg PO TID [facility] Last Admin: 10/03/17 07:56 Dose: 100 mg Glucagon (Glucagon) 1 mg IM PRN PRN PRN Reason: Hypoglycemia Heparin Sodium (Porcine) (Heparin) 5,000 units SC TID [facility] Last Admin: 10/03/17 07:55 Dose: 5,000 units Sodium Chloride (Normal Saline 0.9%) 1,000 mls @ 75 mls/hr IV .[id number] [facility] Last Admin: 10/03/17 04:45 Dose: 1,000 mls Dextrose/Water (D5w) 1,000 mls @ 0 mls/hr IV .Q0M PRN; As Directed PRN Reason: Hypoglycemia Ceftriaxone Sodium 1 gm/ (Sodium Chloride) 100 mls @ 200 mls/hr IVPB Q24HR [facility] Last Admin: 10/02/17 14:28 Dose: 100 mls Insulin Human Lispro (Humalog) 0 units SC .MILD SLIDING SCALE PRN PRN Reason: Mild Correctional Scale Last Admin: 10/03/17 04:47 Dose: 2 unit Multivitamins (Theragran) 1 tab PO DAILY [facility] Last Admin: 10/03/17 07:56 Dose: 1 tab Oxybutynin Chloride (Ditropan Xl) 15 mg PO DAILY [facility] Last Admin: 10/03/17 07:55 Dose: 15 mg Oxycodone HCl (Oxycodone Ir) 10 mg PO Q4H PRN PRN Reason: Severe Pain (7-10) Pantoprazole Sodium (Protonix) 20 mg PO DAILY [facility] Last Admin: 10/03/17 07:56 Dose: 20 mg Tramadol HCl (Ultram) 50 mg PO QID PRN PRN Reason: Pain
[2017-10-03] MEDS: cefTRIAXone\\ROCEPHIN 1 GM in Sodium Chloride 0.9% 100 ML IVPB SCH (15:38)
[2017-10-03] MEDS: Atorvastatin Calcium 10 MG TAB PO SCH (20:37)
[2017-10-04] MEDS: Sodium Chloride 0.9% 1,000 ML IV SCH (03:02)
[2017-10-04 08:15] VITALS: BP 129/56; TEMP 98.4
[2017-10-04] MEDS: Aspirin 81 mg Enteric Coated Tablet PO SCH (08:30)
[2017-10-04] MEDS: Clopidogrel Bisulfate 75 MG TAB PO SCH (08:30)
[2017-10-04] MEDS: Escitalopram Oxalate 10 mg Tablet PO SCH (08:30)
[2017-10-04] MEDS: Famotidine 20 MG TAB PO SCH (08:30)
[2017-10-04] MEDS: Carvedilol 3.125 MG TAB PO SCH (08:31)
[2017-10-04] MEDS: Gabapentin 100 MG CAP PO SCH (08:31)
[2017-10-04] MEDS: Digoxin 0.25 MG TAB PO SCH (08:31)
[2017-10-04] MEDS: Heparin 5,000 UNITS/ML VIAL SC SCH (08:32)
[2017-10-04] MEDS: Multivit, Therapeutic 1 TAB PO SCH (08:32)
--- NOTE | 2017-10-04 12:19 | DIS ---
DATE OF ADMISSION: 10/01/2017 DATE OF DISCHARGE: 10/04/2017 PRIMARY CARE PHYSICIAN: Terri Joseph. DISCHARGE DISPOSITION: half-way unit. PRIMARY DISCHARGE DIAGNOSES: 1. Urinary tract infection. 2. Demand ischemia. 3. Acute kidney failure, improved. 4. Acute encephalopathy, resolved. 5. Hyperkalemia, resolved. SECONDARY DISCHARGE DIAGNOSES: Anemia, normocytic normochromic, anxiety and depression, coronary ar siobhan disease, chronic kidney disease stage 3, diabetes type 2, dyslipidemia, physical deconditioning . PRIMARY PROCEDURE/OPERATION: None. RADIOLOGICAL INVESTIGATION: CT brain on admission showed no acute intracranial findings. SIGNIFICANT LABS: WBC 7.6, hemoglobin 8.4, platelets 349, sodium 140, potassium 3.7, chloride 104, carbon dioxide 28, anion gap 12, BUN 13, creatinine 1.02, glucose 155, calcium 9.2. LFT: AST 14, A LT 15, alkaline phosphatase 55, albumin 2.8. Lipase 36. Urinalysis suggestive of UTI. Urine cultu re grew Proteus and Staphylococcus aureus. Blood culture negative. DISCHARGE MEDICATIONS: New medication: Ceftin 250 mg p.o. b.i.d. for 10 days, Florastor 250 mg p.o . daily for 10 days. Continue following medication: Aspirin 81 mg p.o. daily, Lipitor 10 mg p.o. a t bedtime, Coreg 3.125 mg p.o. b.i.d., Plavix 75 mg p.o. daily, Flexeril 10 mg t.i.d. p.r.n., digoxi n 250 mcg p.o. daily, Lexapro 10 mg p.o. daily, Lasix 20 mg p.o. daily, gabapentin 100 mg p.o. t.i.d ., lisinopril 2.5 mg p.o. daily, multivitamin 1 tablet p.o. daily, Ditropan 15 mg p.o. daily, Proton ix 20 mg p.o. daily, oxycodone 10 mg q.4 hourly p.r.n., tramadol 50 mg q.i.d. p.r.n. CONTRAINDICATIONS: None. CODE STATUS: FULL CODE. ALLERGIES: MORPHINE, LATEX, and SULFA. DISCHARGE PLAN: Post hospital, the patient will follow up with primary care physician at [facility]. HOSPITAL COURSE: An 86-year-old female who lives at [facility] from there, she was sent to the em ergency room for altered mental status. Patient's altered mental status was related with metabolic as well as infectious etiology. She was found with acute kidney failure, dehydration and urinary tr act infection. Patient was treated with IV fluid. Her renal function improved to normal. Her abno rmal electrolytes converted back to normal. She had demand ischemia of myocardium because of infect ion. Patient was treated with Rocephin while in hospital. Her urine culture grew Proteus mirabilis and Staph aureus. Blood culture remained negative. The patient remained afebrile while in [facility]. The patient's condition significantly improved with IV antibiotic therapy. On discharge based o n culture and sensitivity result, we are changing to Ceftin for another 10 days. Patient is doing very well. The patient is medically stable for discharge. The patient is seen and examined at bedside today. Paper work for discharge done. Discharge medication reconciliation don e. PHYSICAL EXAMINATION: VITAL SIGNS: Currently, temperature 98.4, pulse 61, respiratory rate 16, saturation 96%, blood pres sure 129/56. Weight 181 pounds. GENERAL: The patient is currently alert, awake, in no acute distress. HEAD: Normocephalic, atraumatic. EYES: Pupils round, reactive to light. Extraocular muscle intact. ENT: Oropharynx within normal limits. LUNGS: Clear to auscultation without any rhonchi or rales. CARDIAC: S1, S2 regular without any murmur. ABDOMEN: Soft and benign. EXTREMITIES: No edema. NEUROLOGIC: Nonfocal examination. Total time spent on discharge day 31 minutes.
[2017-10-04] MEDS ORDERED: cefTRIAXone\\ROCEPHIN 1 GM, Syringe 0.4 ML in Sterile Water 9.6 ML SLOW IVP SCH (14:30)
== END 2017-10-04 10:13 | DRG 689 ==
LOC: ERS 11:34 → T4-B 16:23
PROVIDERS: ADMIT Internal Medicine; ATTEND Internal Medicine
DX: N39.0 Urinary tract infection, site not specified (principal); G93.40 Encephalopathy, unspecified; N17.9 Acute kidney failure, unspecified; I24.8 Other forms of acute ischemic heart disease; E87.1 Hypo-osmolality and hyponatremia; D64.9 Anemia, unspecified; I25.10 Atherosclerotic heart disease of native coronary artery without angina pectoris; E78.5 Hyperlipidemia, unspecified; F41.8 Other specified anxiety disorders; E87.5 Hyperkalemia; E86.0 Dehydration; E11.22 Type 2 diabetes mellitus with diabetic chronic kidney disease; N18.3 Chronic kidney disease, stage 3 (moderate)
CPT/HCPCS: 36415; 36416; 51701; 70450; 80048; 80053; 81003; 81015; 82553; 83605; 83690; 84484; 85025; 87040; 87077; 87086; 87186; 96365; A4216; A4353; G8978-GP-CM; G8979-GP-CK; J0696; J1644; J7050

== ENCOUNTER 2018-06-01 09:47 | Emergency (ER) | payer MEDICARE, BC | END 2018-06-01 10:36 | disposition home or self-care (01) | LOC: ERS 09:47 | DX: Z00.00 Encounter for general adult medical examination without abnormal findings (principal); I50.9 Heart failure, unspecified; I48.91 Unspecified atrial fibrillation; I13.0 Hypertensive heart and chronic kidney disease with heart failure and stage 1 through stage 4 chronic kidney disease, or unspecified chronic kidney disease; N18.9 Chronic kidney disease, unspecified; E11.22 Type 2 diabetes mellitus with diabetic chronic kidney disease; Z79.82 Long term (current) use of aspirin; Z79.899 Other long term (current) drug therapy | CPT/HCPCS: 99284 ==

== ENCOUNTER 2020-04-05 22:03 | Inpatient (IN) | payer MEDICARE, BC, OTHER ==
[2020-04-05 22:56] LABS: #Eosinphils 0.1 thou/uL (0.0-0.7); #Lymphocytes 1.4 thou/uL (1.20-3.40); #Monocytes 0.7 thou/uL (0.11-0.59); #Neutrophils 8.5 thou/uL (1.40-6.50); %Basophils 0.2 % (0.0-1.0); %Eosinophils 0.8 % (0.0-10.0); %Lymphocytes 13.3 % (21.0-51.0); %Monocytes 6.8 % (0.0-10.0); Hemoglobin 11.7 g/dL (12.0-16.0); Mean Corpuscular Hemoglobin 29.9 pg (27.0-31.0); Mean Corpuscular Volume 93.6 fL (78.0-98.0); Mean Platelet Volume 8.8 fL (7.4-10.4); Platelet Count 254 thou/uL (130-400); RBC Distribution Width 12.2 % (11.5-14.5); Red Blood Cell (RBC) Count 3.92 mill/uL (4.20-5.40); White Blood Cell (WBC) Count 10.8 thou/uL (4.8-10.8)
[2020-04-05 23:00] LABS: PTT 29.2 SEC (22.9-36.1)
[2020-04-05] MEDS ORDERED: Acetaminophen 500 MG TAB ONE (23:00)
[2020-04-05 23:12] LABS: Anion Gap 16 mmol/L (10-20); Calc. Creatinine Clearance 0 mL/min (70-130); Calcium 9.1 mg/dL (7.8-10.44); Carbon Dioxide 26 mmol/L (23-31); Chloride 103 mmol/L (98-107); Estimated GFR-MDRD 35; Glucose 147 mg/dL (83-110); Potassium 4.2 mmol/L (3.5-5.1); Sodium 141 mmol/L (136-145)
[2020-04-05] MEDS ORDERED: Fentanyl 100 MCG/2 ML VIAL ONE (23:29)
--- NOTE | 2020-04-06 02:03 | HP ---
REQUESTING PHYSICIAN: Dr. Grigsby. CONSULTATIONS: Orthopedics, Dr. Yu. HISTORY OF PRESENT ILLNESS: The patient is an 89-year-old woman, who lives in the [facility], who reportedly had a ground level fall this evening in the bathroom. She was brought to the emergency department, where she underwent evaluation and examination and was noted to have a right femoral neck fracture. At which time, we were asked to evaluate the patient for admission and obtain orthopedic consultation. The patient does not remember if she hit her head, but she did have a contusion noted on her occiput, and she is on aspirin and Plavix. Her CT scans of her brain and C-spine were unremarkable fortunately. We are attempting to ascertain when she took her last dose of Plavix as this will affect her surgical timing. ALLERGIES: LATEX, MORPHINE, PENICILLIN, SULFA. THE PATIENT IS UNSURE OF WHAT HER REACTIONS TO ANY OF THESE MEDICATIONS WERE. CURRENT MEDICATIONS: 1. Aspirin. 2. Plavix. 3. Coreg. 4. Lipitor. 5. Digoxin. 6. Lisinopril. These medications are still being attempted to be verified by the nursing staff. PAST MEDICAL HISTORY: Hypertension, CHF, atrial fibrillation, chronic kidney disease, diabetes, phlebitis, diverticulitis, dementia, and depression. PAST SURGICAL HISTORY: Left knee orthopedic surgery, hysterectomy, cholecystectomy. SOCIAL HISTORY: The patient lives at the [facility]. No reported history of drug, tobacco, or alcohol use. REVIEW OF SYSTEMS: A 10-point review of system is unremarkable unless otherwise stated. PHYSICAL EXAMINATION: VITAL SIGNS: Blood pressure 121/73, heart rate 85, respirations 17, oxygen saturation is 96% on room air, and temperature is 99.1. GENERAL: The patient is resting comfortably in bed. She is awake, alert, conversant. She primarily is a poor historian, but otherwise is appropriate. [place] Coma Scale is 15. HEENT. Head is normocephalic with small tender contusion in her occiput, but otherwise unremarkable. Eyes are extraocular motion intact. PERRLA bilaterally. Ears are atraumatic without discharge. Nose is atraumatic without discharge. Oropharynx is clear. NECK: Nontender. Trachea is midline. No JVD. The patient was able to be cleared out of her pre-hospital cervical collar. LUNGS: Clear to auscultation with good inspiratory and expiratory effort. HEART: Regular rate and rhythm. ABDOMEN: Soft, flat, nontender with active bowel sounds. PELVIS: Stable. EXTREMITIES: Neurovascularly intact x4. BACK: Atraumatic and nontender. LABORATORY DATA: Labs are pending. Radiographs show minimally impacted right femoral neck fracture. ASSESSMENT AND PLAN: 1. Status post ground level fall. 2. Right femoral neck fracture. 3. History of dementia, hypertension, coronary artery disease, atrial fibrillation, congestive heart failure, and history of Plavix use. PLAN: Plan will be to admit the patient to surgical floor. We will do pain control, pulmonary toilet, gastritis, mechanical VTE prophylaxis. We will have the nurses reach out to the senior living to get an updated medical list and medical history. We will make her n.p.o. tonight if the timing is right for her surgery. This patient was examined in the emergency department with Dr. Gutierrez. Job ID: [id number]
[2020-04-06] MEDS ORDERED: Ondansetron ODT 4 MG TAB PO PRN (02:09)
[2020-04-06] MEDS ORDERED: Dextrose 5% in Water 1,000 ML IV PRN (02:09)
[2020-04-06] MEDS ORDERED: Dextrose 50% Abboject 50 ML SYRINGE SLOW IVP PRN (02:09)
[2020-04-06] MEDS ORDERED: hydrALAZINE 20 MG/ML VIAL SLOW IVP PRN (02:09)
[2020-04-06] MEDS ORDERED: Sodium Chloride 0.9% 1,000 ML IV SCH (02:09)
[2020-04-06] MEDS ORDERED: Ondansetron PF 4 MG/2 ML Vial IVP PRN (02:09)
[2020-04-06] MEDS: Fentanyl 100 MCG/2 ML VIAL SLOW IVP PRN ×2 (02:21→10:25)
[2020-04-06] MEDS ORDERED: Fentanyl 100 MCG/2 ML VIAL SLOW IVP SCH (02:45)
[2020-04-06 02:53] VITALS: BMI 24.5
[2020-04-06] MEDS: Acetaminophen 325 MG TAB PO SCH ×4 (03:36→19:56)
[2020-04-06 05:41] LABS: #Eosinphils 0.1 thou/uL (0.0-0.7); #Lymphocytes 1.8 thou/uL (1.20-3.40); #Neutrophils 7.5 thou/uL (1.40-6.50); %Basophils 0.3 % (0.0-1.0); %Eosinophils 0.8 % (0.0-10.0); %Lymphocytes 17.6 % (21.0-51.0); %Monocytes 9.3 % (0.0-10.0); Hemoglobin 11.8 g/dL (12.0-16.0); Mean Corpuscular HGB CONC 32.5 g/dL (32.0-36.0); Mean Corpuscular Hemoglobin 30.4 pg (27.0-31.0); Mean Corpuscular Volume 93.4 fL (78.0-98.0); Mean Platelet Volume 7.9 fL (7.4-10.4); Platelet Count 212 thou/uL (130-400); RBC Distribution Width 12.2 % (11.5-14.5); Red Blood Cell (RBC) Count 3.87 mill/uL (4.20-5.40); White Blood Cell (WBC) Count 10.4 thou/uL (4.8-10.8)
[2020-04-06 06:03] LABS: Anion Gap 14 mmol/L (10-20); BUN (Urea Nitrogen) 35 mg/dL (9.8-20.1); Calc. Creatinine Clearance 30 mL/min (70-130); Calcium 9.1 mg/dL (7.8-10.44); Carbon Dioxide 28 mmol/L (23-31); Chloride 103 mmol/L (98-107); Estimated GFR-MDRD 37; Glucose 128 mg/dL (83-110); Sodium 141 mmol/L (136-145)
--- NOTE | 2020-04-06 07:16 | CT ---
CT BRAIN WITHOUT CONTRAST: HISTORY: Unwitnessed fall in a alf. The patient hit her head. COMPARISON: 10/01/2017 TECHNIQUE: Multiple contiguous axial images were obtained in a CT of the brain without contrast. FINDINGS: There are scattered hypodensities in the subcortical and periventricular white matter, likely seconda ry to small vessel ischemic disease. Soft tissue swelling is seen in the forehead and right parietal scalp. The underlying calvarium is unremarkable. The visualized paranasal sinuses and mastoid air fabiano ls are well aerated. IMPRESSION: No evidence of acute intracranial abnormality. POS: EAA
--- NOTE | 2020-04-06 07:17 | CT ---
CT CERVICAL SPINE WITHOUT CONTRAST: HISTORY: Unwitnessed fall in a fdc. Head trauma and neck pain. COMPARISON: 06/23/2017 TECHNIQUE: Multiple contiguous axial images were obtained in a CT of the cervical spine without contrast. Sagitt al and coronal reformats were performed. FINDINGS: Mild to moderate degenerative changes are seen throughout the cervical spine. There is fusion of some of the posterior facets. The posterior facets are well aligned. The vertebral bodies demonstrate nor mal height and alignment without acute fracture or subluxation. No prevertebral soft tissue swelling is seen. There is normal alignment of the skull base with the cervical spine. The lung apices are unremarkable . IMPRESSION: No evidence of acute osseous abnormality of the cervical spine. POS: EAA
--- NOTE | 2020-04-06 07:18 | RAD ---
SINGLE VIEW CHEST: HISTORY: Fall at a alf. COMPARISON: 08/14/2017 FINDINGS: A single view of the chest shows a normal sized cardiomediastinal silhouette. There is no evidence of consolidation, mass or pleural effusion. There are multiple remote left rib fractures. Degenerative changes are seen in the spine. IMPRESSION: No evidence of acute cardiopulmonary disease. POS: CONSTANCEA
--- NOTE | 2020-04-06 07:19 | RAD ---
RIGHT HIP TWO VIEWS: HISTORY: Fall at half-way with right hip pain. FINDINGS: Two views of the right hip show a fracture of the right femoral neck. Moderate degenerative change is seen in the right hip joint. No dislocation of the femoral head is seen. No fractures at the right a spect of the pelvis are seen. IMPRESSION: Right femoral neck fracture. POS: EAA
--- NOTE | 2020-04-06 07:21 | RAD ---
SINGLE VIEW PELVIS: HISTORY: Fall at a longterm with right hip pain. COMPARISON: None. FINDINGS: A single view of the pelvis shows a fracture of the right femoral neck. Moderate degenerative change is seen in both hips and in the lumbar spine. No pelvic fractures are seen. IMPRESSION: Right femoral neck fracture. POS: EAA
[2020-04-06] MEDS ORDERED: Milk Of Magnesia 30 ML UDCUP PO PRN (07:33)
[2020-04-06] MEDS ORDERED: Polyethylene Glycol 3350 17 GM Packet PO PRN (07:33)
[2020-04-06 07:38] LABS: Phosphorus 3.2 mg/dL (2.3-4.7)
[2020-04-06] MEDS: Multivitamin W/ Minerals 1 TAB PO SCH (08:58)
[2020-04-06] MEDS: Ferrous Sulfate 325 MG TAB PO SCH (08:58)
[2020-04-06] MEDS: Oxybutynin ER 5 MG TAB PO SCH (08:58)
[2020-04-06] MEDS: Carvedilol 3.125 MG TAB PO SCH ×2 (08:58→22:25)
[2020-04-06] MEDS: Famotidine 20 MG TAB PO SCH (08:58)
[2020-04-06] MEDS: Furosemide 20 MG TAB PO SCH (08:58)
[2020-04-06] MEDS: Zinc Sulfate 220 MG CAP PO SCH (08:59)
[2020-04-06] MEDS: ALPRAZolam 0.5 MG TAB PO SCH ×2 (08:59→19:56)
[2020-04-06] MEDS: Digoxin 0.125 MG TAB PO SCH (09:03)
[2020-04-06] MEDS: Triamcinolone 0.1% Cream 15 GM TUBE TOP SCH ×2 (09:19→20:03)
[2020-04-06] MEDS ORDERED: Clindamycin/D5W 900 MG in Premix Bag 1 BAG IVPB SCH (10:30)
[2020-04-06 11:48] LABS: INR-International Normal Ratio 1.1; PTT 34.2 SEC (22.9-36.1); Prothrombin Time 13.9 sec (12.0-14.7)
--- NOTE | 2020-04-06 12:08 | CON ---
DATE OF CONSULTATION: 04/06/2020 CHIEF COMPLAINT: Right hip pain. CONSULTING TEAM: Trauma. HISTORY OF PRESENT ILLNESS: Ms. Roque is an 89-year-old female, lives in [facility]. She had kind of a fall in the bathroom. The patient was brought here for right hip pain. The patient has been evaluated by Trauma. She had Plavix and aspirin on Wednesday morning. PAST MEDICAL HISTORY: Hypertension, congestive heart failure, atrial fibrillation, chronic kidney disease, diabetes, phlebitis, diverticulitis, dementia, depression, and chronic left ankle wound. PAST SURGICAL HISTORY: Left knee orthopedic surgery, hysterectomy, cholecystectomy. MEDICATIONS: On previous admission: 1. Aspirin. 2. Plavix. 3. Coreg. 4. Lipitor. 5. Digoxin. 6. Lisinopril. ALLERGIES: LATEX, MORPHINE, PENICILLIN, AND SULFA. SOCIAL HISTORY: Lives in [facility]. No recent tobacco, alcohol, or drug use. REVIEW OF SYSTEMS: Unremarkable. PHYSICAL EXAMINATION: VITAL SIGNS: Temperature 98.3, heart rate 74, respirations 14, oxygen saturations 93% on room air, blood pressure 118/69. GENERAL: A well-nourished 89-year-old female, alert to person and not to place or time. EXTREMITIES: The patient's right lower extremity is externally rotated. She has pain with internal and external rotation. She has a small effusion. Obvious arthritic changes of right knee. She had no wounds on her right lower extremity. She is neurovascularly intact. Brisk cap refill. Soft compartments. LABORATORY DATA: She has H and H of 11 and 36. Coagulation is pending. The patient's chemistries; creatinine is 1.34, glucose 128. The patient's right hip x-rays and pelvis show a right subcapital femoral neck fracture with osteophyte formation and degenerative changes of the right hip. IMPRESSION: 1. Right hip subcapital femoral neck fracture. 2. Diabetes. 3. Dementia and depression. 4. Congestive heart failure. 5. Atrial fibrillation. 6. Chronic kidney disease. PLAN: The patient is medically managed by Trauma. The patient will require right hip hemiarthroplasty. We will get her sugars in place. We will await until tomorrow to potentially give the patient platelets if needed. Her grandson was at bedside. The is actually [id number]. He has difficulty of hearing and most of the medical decisions are made by the patient's grandsons. I discussed risks and benefits of surgery to include pain, scar, bleeding, infection, damage to vital structures, decreased range of motion and strength, continued pain despite surgical intervention, loss of life or limb. I discussed that her immobility status would not improve, likely she will maintain level of transfer only and they desire to proceed for pain control. I discussed risks and benefits with the patient and family elected to proceed. We will give preop antibiotics in the morning. The patient will be taken to the OR at 8 o'clock and she will be made n.p.o. after midnight. We will measure medically as needed and trauma measure medically as needed. Job ID: [id number] [facility]
[2020-04-06] MEDS: Insulin Regular 300 UNITS/3 ML VIAL SC PRN (12:41)
--- NOTE | 2020-04-06 13:32 | HP ---
CHIEF COMPLAINT: Right hip fracture. HISTORY OF PRESENT ILLNESS: The patient is an 89-year-old white female. She sustained a fall at her half-way facility last night. She was found to have a right hip fracture, brought to the emergency. I evaluated the patient for physical examination. I reviewed her imaging studies and documentation per PRABHJOT Contreras. She is somewhat confused as she was uncertain of her age and believed that she was at home. This is consistent with her history of dementia. I agree with the examination, plan as outlined per Hugo. Job ID: [id number]
[2020-04-06] MEDS: traMADol HCl 50 MG TAB PO PRN (14:30)
--- NOTE | 2020-04-06 15:02 | PRG ---
DATE OF SERVICE: 04/06/2020 SUBJECTIVE: Ms. Roque is an 89-year-old female who resides in a correction with status post ground level fall. She sustained right femoral neck fracture. She also has a history of dementia, hypertension, coronary artery disease, atrial fibrillation, CHF, is using Plavix. The patient was admitted to [place] [id number] Yu saw the patient and plans to take the patient to the OR tomorrow for right hip fracture fixation. We will transfuse platelet as needed. The patient tolerated her regular diet. Her vital signs stable. Her urine is adequate. She developed no fever or shortness of breath. OBJECTIVE: GENERAL: Currently, the patient lying in bed comfortable with no acute respiratory distress. VITAL SIGNS: Temperature 98.9, heart rate 68, respiratory rate 16, O2 saturation 93% on room air, blood pressure 107/63. LUNGS: Clear bilaterally. HEART: Irregular rate, irregular rhythm. ABDOMEN: Soft, nondistended. EXTREMITIES: Neurovascularly intact x4. Right hip limited range of motion due to pain. NEUROLOGIC: No focal neurology deficits. LABORATORY DATA: Show a white count 10.4, hemoglobin 11.8. Sodium 141, potassium 4.0, creatinine 1.34, phosphorus 3.2, and magnesium 2.0. ASSESSMENT: 1. Status post ground level fall. 2. Right femoral neck fracture. 3. History of hypertension, coronary artery disease, atrial fibrillation, congestive heart failure, dementia, on Plavix. PLAN: We will continue supportive care. Continue pain control. The patient will be n.p.o. at midnight . Continue DVT prophylaxis. Postop, patient will need to work with physical therapy and occupational therapy. Anticipate [facility] back to [facility] facility in the next 48 hours. Job ID: [id number]
[2020-04-07] MEDS: Sodium Chloride 0.9% 1,000 ML IV SCH ×3 (00:21→20:48)
[2020-04-07] MEDS: traMADol HCl 50 MG TAB PO PRN (03:05)
[2020-04-07] MEDS: Acetaminophen 325 MG TAB PO SCH ×4 (03:05→20:36)
--- NOTE | 2020-04-07 03:05 | PRG ---
DATE OF SERVICE: 04/07/2020 SUBJECTIVE: The patient is currently on the surgical floor. She is status post ground level fall, which she sustained a right subcapital femoral neck fracture. She is on Plavix and will have a delay in her surgery until tomorrow. Today, there were no reported issues. Her pain was controlled. She was tolerating a diet. OBJECTIVE: VITAL SIGNS: Stable. The patient is afebrile. GENERAL: The patient is resting comfortably in bed. She awakened for my exam. She denied any pain. RESPIRATIONS: Nonlabored. ABDOMEN: Nondistended. EXTREMITIES: Neurovascularly intact x4. ASSESSMENT AND PLAN: 1. Status post ground level fall. 2. Right hip subcapital femoral neck fracture. 3. History of diabetes, dementia, depression, congestive heart failure, atrial fibrillation, and chronic kidney disease. 4. History of Plavix use. Plan will be to continue supportive care. Make the patient n.p.o. after midnight. Check labs in the morning and likely undergo surgery tomorrow with Dr. Yu. Job ID: [id number]
[2020-04-07 05:36] LABS: #Eosinphils 0.2 thou/uL (0.0-0.7); #Lymphocytes 1.2 thou/uL (1.20-3.40); #Monocytes 0.7 thou/uL (0.11-0.59); #Neutrophils 7.4 thou/uL (1.40-6.50); %Basophils 0.4 % (0.0-1.0); %Eosinophils 2.1 % (0.0-10.0); %Lymphocytes 12.8 % (21.0-51.0); %Monocytes 7.2 % (0.0-10.0); %Neutrophils 77.4 % (42.0-75.0); Hemoglobin 11.1 g/dL (12.0-16.0); Mean Corpuscular HGB CONC 30.2 g/dL (32.0-36.0); Mean Corpuscular Hemoglobin 28.4 pg (27.0-31.0); Mean Corpuscular Volume 94.1 fL (78.0-98.0); Mean Platelet Volume 8.4 fL (7.4-10.4); Platelet Count 225 thou/uL (130-400); RBC Distribution Width 12.4 % (11.5-14.5); Red Blood Cell (RBC) Count 3.91 mill/uL (4.20-5.40); White Blood Cell (WBC) Count 9.6 thou/uL (4.8-10.8)
[2020-04-07 05:38] LABS: INR-International Normal Ratio 1.1; PTT 35.2 SEC (22.9-36.1)
[2020-04-07] MEDS: Fentanyl 100 MCG/2 ML VIAL SLOW IVP PRN (05:53)
[2020-04-07] MEDS: Carvedilol 3.125 MG TAB PO SCH ×2 (05:53→20:27)
[2020-04-07 05:54] LABS: Anion Gap 12 mmol/L (10-20); BUN (Urea Nitrogen) 22 mg/dL (9.8-20.1); Calc. Creatinine Clearance 31 mL/min (70-130); Calcium 8.7 mg/dL (7.8-10.44); Carbon Dioxide 26 mmol/L (23-31); Chloride 104 mmol/L (98-107); Estimated GFR-MDRD 39; Glucose 125 mg/dL (83-110); Magnesium 1.9 mg/dL (1.6-2.6); Phosphorus 2.7 mg/dL (2.3-4.7); Sodium 138 mmol/L (136-145)
[2020-04-07] MEDS ORDERED: Fentanyl 100 MCG/2 ML VIAL ONE (07:28)
[2020-04-07] MEDS ORDERED: Magnesium 2 GM/50 ML 2 GM in Premix Bag 1 BAG IVPB SCH (07:30)
[2020-04-07] MEDS ORDERED: Dexamethasone 4 mg/ml Vial ONE (07:43)
[2020-04-07] MEDS ORDERED: Clindamycin/D5W 900 mg/50 ml Premix Bag ONE (07:48)
[2020-04-07] MEDS: Triamcinolone 0.1% Cream 15 GM TUBE TOP SCH ×2 (09:00→20:36)
[2020-04-07] MEDS ORDERED: SUGAMMADEX SODIUM 200 MG/2 ML VIAL ONE (09:29)
[2020-04-07] MEDS ORDERED: Ondansetron HCl/PF 4 MG/2 ML Vial IVP PRN (09:51)
[2020-04-07] MEDS ORDERED: Promethazine HCl 25 MG/ML VIAL IM PRN (09:51)
[2020-04-07] MEDS ORDERED: Promethazine HCl 25 MG/ML VIAL SLOW IVP PRN (09:51)
--- NOTE | 2020-04-07 10:21 | RAD ---
Exam: XR Hip Rt 1 View HISTORY: Right hip fracture, postoperative changes. COMPARISON: 04/05/2020 FINDINGS: Single crosstable lateral view right hip is submitted for interpretation. There is now evidence of a right total hip prosthesis. However, the acetabulum is mostly obscured on this exam due to overlying contralateral left femur. No definite hardware complication is seen involving the visualize d proximal femur. No other findings. IMPRESSION: Evidence of interval placement of right total hip prosthesis. There is limited evaluation on this sin gle lateral projection.
--- NOTE | 2020-04-07 10:22 | RAD ---
EXAM: XR Pelvis AP STANDARD PROVIDED CLINICAL HISTORY: Right hip fracture. Postoperative changes. COMPARISON: 04/05/2020 FINDINGS: Interval postoperative changes related to placement of right total hip prosthesis. No hardware compli cation is appreciated. Subcutaneous emphysema and edema are seen adjacent to the right hip. The most lateral aspect of the right hip is excluded from view. Left hip osteoarthritis is present with d egenerative changes at the pubic sepsis. Vascular calcifications are seen in the iliac and femoral arteries. IMPRESSION: Interval postoperative changes related to right total hip prosthesis.
[2020-04-07] MEDS: Oxybutynin ER 5 MG TAB PO SCH (11:18)
[2020-04-07] MEDS: Zinc Sulfate 220 MG CAP PO SCH (11:19)
[2020-04-07] MEDS: Ferrous Sulfate 325 MG TAB PO SCH (11:19)
[2020-04-07] MEDS: Digoxin 0.125 MG TAB PO SCH (11:19)
[2020-04-07] MEDS: Furosemide 20 MG TAB PO SCH (11:20)
[2020-04-07] MEDS: Famotidine 20 MG TAB PO SCH (11:20)
[2020-04-07] MEDS: Multivitamin W/ Minerals 1 TAB PO SCH (11:22)
[2020-04-07] MEDS: ALPRAZolam 0.5 MG TAB PO SCH ×2 (11:22→20:36)
[2020-04-07] MEDS ORDERED: Lidocaine 1% PF 5 ML VIAL ONE (11:30)
[2020-04-07] MEDS ORDERED: PROPOFOL 200 MG/20 ML VIAL ONE (11:30)
[2020-04-07] MEDS ORDERED: Glycopyrrolate 0.2 MG/ML 5 ML SYRINGE ONE (11:30)
[2020-04-07] MEDS ORDERED: EPHEDRINE 25 MG/5 ML SYRINGE ONE (11:30)
[2020-04-07] MEDS ORDERED: Ondansetron PF 4 MG/2 ML Vial ONE (11:30)
[2020-04-07] MEDS ORDERED: Dexamethasone 20 MG/5 ML VIAL ONE ×2 (11:30→11:39)
[2020-04-07] MEDS ORDERED: PHENYLEPHRINE-NS 100 MCG/ML 10 ML SYRINGE ONE (11:30)
[2020-04-07] MEDS ORDERED: Rocuronium Bromide 10 MG/ML (10ML VIAL) ONE (11:30)
[2020-04-07] MEDS ORDERED: Ropivacaine 0.5% HCl/PF (150 MG/30 ML VIAL) ONE (11:39)
[2020-04-07] MEDS: Clindamycin/D5W 900 MG in Premix Bag 1 BAG IVPB SCH ×2 (16:11→23:39)
[2020-04-07] MEDS: Insulin Regular 300 UNITS/3 ML VIAL SC PRN ×2 (16:34→20:35)
--- NOTE | 2020-04-07 17:50 | PRG ---
DATE OF SERVICE: 04/07/2020 SUBJECTIVE: Ms. Roque is an 89-year-old female, status post ground level fall. She sustained a right femur neck fracture. She underwent ORIF of right femur neck fracture today. The patient also suffers from history of dementia, hypertension, coronary artery disease, atrial fibrillation, CHF, on Plavix. The patient reports no overnight events. Vital signs stable. Pain is well controlled. Her urine is adequate. OBJECTIVE: GENERAL: Currently patient lying in bed, comfortable, with no acute respiratory distress. VITAL SIGNS: Temperature 98.3, heart rate 78, respiratory rate 16, O2 saturation 96% on 2 L, and blood pressure 120/70. LUNGS: Clear bilaterally. HEART: Regular rate and rhythm. ABDOMEN: Soft, nondistended. EXTREMITIES: Neurovascularly intact x4. NEUROLOGIC: No focal neurology deficits. ASSESSMENT: 1. Status post ground level fall. 2. Right femoral neck fracture. 3. History of hypertension, coronary artery disease, atrial fibrillation, congestive heart failure, dementia, on Plavix. PLAN: Plan will be to continue supportive care, continue pain control. The patient has a plan to go to the OR today for right hip fracture fixation. Postop, the patient will need to work with physical therapy, occupational therapy. Anticipate placement in [facility] facility. Job ID: [id number]
[2020-04-08] MEDS: traMADol HCl 50 MG TAB PO PRN ×2 (01:31→18:18)
--- NOTE | 2020-04-08 02:08 | PRG ---
DATE OF SERVICE: 04/08/2020 SUBJECTIVE: The patient is currently on the surgical floor. She underwent ORIF of her right femoral neck fracture today. She tolerated the procedure well, and postoperatively, her pain is controlled. She is tolerating a diet and she will begin working with physical and occupational therapy tomorrow. PHYSICAL EXAMINATION: VITAL SIGNS: Stable. The patient is afebrile. GENERAL: The patient is resting comfortably in bed. She is awake, alert, conversant, reports that her pain is controlled. She is tolerating liquids, but has not had anything to eat yet as she is not hungry. LUNGS: Clear bilaterally. HEART: Regular rate and rhythm. ABDOMEN: Soft, flat, nontender with active bowel sounds. EXTREMITIES: Neurovascularly intact x4. Postop dressing is clean, dry, and intact. ASSESSMENT/PLAN: 1. Status post ground level fall. 2. Status post open reduction and internal fixation of right femoral neck fracture. 3. History of hypertension, coronary artery disease, atrial fibrillation, CHF, dementia, and Plavix use. PLAN: Plan will be to continue supportive care. Encourage physical and occupational therapy and discuss placement tomorrow. Job ID: [id number]
[2020-04-08] MEDS: Acetaminophen 325 MG TAB PO SCH ×4 (02:48→20:44)
[2020-04-08] MEDS: Cyclobenzaprine 10 MG TAB PO PRN (02:52)
[2020-04-08 05:20] LABS: Hemoglobin A1c 5.9 % (4.0-6.0)
[2020-04-08] MEDS: Insulin Regular 300 UNITS/3 ML VIAL SC PRN ×4 (05:49→20:53)
[2020-04-08 05:52] LABS: #Lymphocytes 0.8 thou/uL (1.20-3.40); #Monocytes 0.9 thou/uL (0.11-0.59); #Neutrophils 7.8 thou/uL (1.40-6.50); %Basophils 0.1 % (0.0-1.0); %Eosinophils 0.1 % (0.0-10.0); %Monocytes 9.6 % (0.0-10.0); %Neutrophils 82.3 % (42.0-75.0); Hemoglobin 9.8 g/dL (12.0-16.0); Mean Corpuscular HGB CONC 32.4 g/dL (32.0-36.0); Mean Corpuscular Hemoglobin 30.3 pg (27.0-31.0); Mean Corpuscular Volume 93.5 fL (78.0-98.0); Mean Platelet Volume 8.6 fL (7.4-10.4); Platelet Count 219 thou/uL (130-400); RBC Distribution Width 12.1 % (11.5-14.5); Red Blood Cell (RBC) Count 3.21 mill/uL (4.20-5.40); White Blood Cell (WBC) Count 9.5 thou/uL (4.8-10.8)
[2020-04-08 05:59] LABS: Anion Gap 12 mmol/L (10-20); BUN (Urea Nitrogen) 20 mg/dL (9.8-20.1); Calc. Creatinine Clearance 30 mL/min (70-130); Calcium 7.8 mg/dL (7.8-10.44); Carbon Dioxide 24 mmol/L (23-31); Chloride 103 mmol/L (98-107); Estimated GFR-MDRD 38; Glucose 218 mg/dL (83-110); Phosphorus 2.5 mg/dL (2.3-4.7); Potassium 4.2 mmol/L (3.5-5.1); Sodium 135 mmol/L (136-145)
--- NOTE | 2020-04-08 08:35 | OP ---
DATE OF PROCEDURE: 04/07/2020 PREOPERATIVE DIAGNOSIS: Right subcapital femoral neck fracture. POSTOPERATIVE DIAGNOSIS: Right subcapital femoral neck fracture. PROCEDURE PERFORMED: Right hip hemiarthroplasty. CHAIR UPHOLSTERER: Toño Short. ANESTHESIA: Dr. Beal. The patient received general with MILTON block. ESTIMATED BLOOD LOSS: Less than 100 mL. TOURNIQUET TIME: None. IMPLANTS: Accolade II 130-degree size 3, 28 mm -4, and a 47 mm bipolar head. ANTIBIOTICS: clindamycin COMPLICATIONS: None. HISTORY OF PRESENT ILLNESS: Ms. Roque is an 89-year-old female, who had a ground level fall, sustaining a right hip fracture. I discussed with the family the risks and benefits of right hip hemiarthroplasty including pain, scar, bleeding, infection, damage to vital structures, fracture above or below the stem, continued pain despite surgical intervention, decreased range of motion and strength, leg lengthening, rotation, loss of life or limb. The patient and family understood the risks and benefits of the procedure and elected to proceed. DESCRIPTION OF PROCEDURE: Time-out was performed designating the patient's right lower extremity as the operative site based on site, consents, and marking. After time-out, the patient's right lower extremity was prepped and draped in sterile fashion. She was placed in lateral position. Right lower extremity was prepped and draped in a sterile fashion. Lateral incision down through skin down to the IT band. IT band was split. The gluteus medius and minimus were T'd, came down, took the capsule, excised it, brought the broken neck into view, cut the neck, removed the bone, placed our corkscrew and removed the head, sized to a 47. We then began sequentially broaching, broaching up to a 3, had good overall stability with the 3, placed our 3 stem, trialed with -4 neck and 47 mm head, reduced, good length and rotation. No impingement. I liked the overall alignment and shuck. We washed , all the component washed out, placed our #3 Accolade II stem, placed our -4 head and then placed our bipolar component on top. We reduced into place. We washed, closed the gluteus medius and minimus, closed the IT band with 2-0 Quill and glue for the skin. The patient will be weightbearing as tolerated, 24 hours of antibiotics, get postoperative radiographs. Job ID: [id number] [facility]
[2020-04-08] MEDS: Multivitamin W/ Minerals 1 TAB PO SCH (09:49)
[2020-04-08] MEDS: Famotidine 20 MG TAB PO SCH (09:49)
[2020-04-08] MEDS: Zinc Sulfate 220 MG CAP PO SCH (09:49)
[2020-04-08] MEDS: Digoxin 0.125 MG TAB PO SCH (09:50)
[2020-04-08] MEDS: ALPRAZolam 0.5 MG TAB PO SCH ×2 (09:50→19:49)
[2020-04-08] MEDS: Furosemide 20 MG TAB PO SCH (09:50)
[2020-04-08] MEDS: Heparin 5,000 UNITS/ML VIAL SC SCH ×2 (09:50→20:45)
[2020-04-08] MEDS: Ferrous Sulfate 325 MG TAB PO SCH (09:50)
[2020-04-08] MEDS: Carvedilol 3.125 MG TAB PO SCH ×2 (09:51→20:45)
[2020-04-08] MEDS: Oxybutynin ER 5 MG TAB PO SCH (09:51)
[2020-04-08] MEDS: Ascorbic Acid 500 mg Chewable Tablet PO SCH ×2 (10:06→20:45)
[2020-04-08] MEDS: Triamcinolone 0.1% Cream 15 GM TUBE TOP SCH ×2 (10:22→20:46)
[2020-04-08] MEDS ORDERED: Hydrocortisone Sod Succ/PF 100 mg/2 ml Vial IVP SCH (11:30)
--- NOTE | 2020-04-08 16:54 | PRG ---
DATE OF SERVICE: 04/08/2020 SUBJECTIVE: Ms. Roque is an 89-year-old female status post ground level fall. She sustained right hip fracture. She underwent a right hip fracture fixation. On postop day 1, the patient reports pain is well controlled. She tolerated regular diet. Her urine is adequate and her vital signs are stable. She developed no nausea or vomiting. No fever or shortness of breath. OBJECTIVE: GENERAL: Currently patient lying in bed, comfortable, with no acute respiratory distress. VITAL SIGNS: Temperature 98.4, heart rate 68, respiratory rate 16, O2 saturation 92% on room air, blood pressure 122/74. LUNGS: Clear bilaterally. HEART: Regular rate and rhythm. ABDOMEN: Soft, nondistended. EXTREMITIES: Neurovascularly intact x4. NEUROLOGIC: No focal neurologic deficits. ASSESSMENT: 1. Status post ground level fall. 2. Right femoral neck fracture, status post repair. 3. History of hypertension, coronary artery disease, atrial fibrillation, congestive heart failure, dementia, on Plavix. PLAN: Continue supportive care. Continue pain control. Continue DVT prophylaxis. The patient will be working with physical therapy and occupational therapy. Anticipate placement in rehabilitation facility or [facility]. The patient was seen with Dr. Richardson on round this morning. Job ID: [id number]
[2020-04-08] MEDS: Hydrocortisone Sod Succ/PF 100 mg/2 ml Vial IVP SCH (18:19)
[2020-04-08] MEDS: oxyCODONE 5 MG TAB PO PRN (20:44)
[2020-04-08] MEDS: Atorvastatin Calcium 10 MG TAB PO SCH (20:45)
[2020-04-09] MEDS: oxyCODONE 5 MG TAB PO PRN ×3 (00:22→19:34)
[2020-04-09] MEDS: Hydrocortisone Sod Succ/PF 100 mg/2 ml Vial IVP SCH ×2 (00:23→04:59)
[2020-04-09] MEDS ORDERED: RisperDAL M-TAB 1 MG TAB SL SCH (01:15)
[2020-04-09] MEDS: Acetaminophen 325 MG TAB PO SCH ×5 (03:34→19:34)
[2020-04-09] MEDS: traMADol HCl 50 MG TAB PO PRN ×2 (04:57→12:50)
[2020-04-09] MEDS: Carvedilol 3.125 MG TAB PO SCH ×2 (05:09→19:33)
--- NOTE | 2020-04-09 05:38 | PRG ---
DATE OF SERVICE: 04/09/2020 SUBJECTIVE: The patient remains on the surgical floor. She is status post ground level fall when she sustained a right femoral neck fracture and she has undergone open reduction and internal fixation of same. She is currently awaiting placement. She has started working with Physical and Occupational Therapy. She is tolerating a diet and her bowel function has returned. This evening, it was noted that the patient was becoming a little bit disoriented and combative and repeatedly accusing the nurses of stealing her ring. She was able to be reoriented to the fact that she was still wearing her ring and she would calm down. The patient was given all of her home medications and she was also given a dose of Risperdal in attempts to calm her. She did become more calm but she did not sleep very much throughout the night. The patient also was noted to have missed her Coreg, which resulted in her becoming tachycardic late in the morning. OBJECTIVE: GENERAL: The patient is resting comfortably in bed. She was calm at the time of my visit, but just reiterated that the nurses were stealing from her. I was able to calm her and reorient her. RESPIRATIONS: Nonlabored. ABDOMEN: Not distended. She was moving all of her extremities freely. ASSESSMENT AND PLAN: 1. Status post ground level fall. 2. Status post open reduction and internal fixation of right femoral neck fracture. 3. History of hypertension, coronary artery disease, atrial fibrillation, congestive heart failure, dementia, and Plavix use. PLAN: Plan will be to continue supportive care. Encourage physical and occupational therapy and await placement decision. Job ID: [id number]
[2020-04-09 06:23] LABS: Digoxin 0.31 ng/mL (0.8-2.0)
[2020-04-09] MEDS ORDERED: Ferrous Sulfate 325 MG TAB PO SCH (09:15)
[2020-04-09] MEDS: Digoxin 0.125 MG TAB PO SCH (10:09)
[2020-04-09] MEDS: ALPRAZolam 0.5 MG TAB PO SCH ×2 (10:10→19:33)
[2020-04-09] MEDS: Furosemide 20 MG TAB PO SCH (10:10)
[2020-04-09] MEDS: Zinc Sulfate 220 MG CAP PO SCH (10:10)
[2020-04-09] MEDS: Multivitamin W/ Minerals 1 TAB PO SCH (10:10)
[2020-04-09] MEDS: Oxybutynin ER 5 MG TAB PO SCH (10:11)
[2020-04-09] MEDS: Clopidogrel Bisulfate 75 MG TAB PO SCH (10:13)
[2020-04-09] MEDS: Ascorbic Acid 500 mg Chewable Tablet PO SCH ×2 (10:13→19:33)
[2020-04-09] MEDS: Famotidine 20 MG TAB PO SCH (10:13)
[2020-04-09] MEDS: Heparin 5,000 UNITS/ML VIAL SC SCH ×2 (10:14→19:33)
[2020-04-09] MEDS: Triamcinolone 0.1% Cream 15 GM TUBE TOP SCH ×2 (10:14→19:35)
[2020-04-09] MEDS: Insulin Regular 300 UNITS/3 ML VIAL SC PRN ×2 (12:54→18:44)
[2020-04-09] MEDS: Ferrous Sulfate 325 MG TAB PO SCH (17:25)
--- NOTE | 2020-04-09 18:58 | PRG ---
DATE OF SERVICE: 04/09/2020 SUBJECTIVE: The patient was seen during morning rounds on the surgical floor. The patient is awake and alert, in no distress. The patient reports that her pain is well controlled at this time. The patient does report having a rough night. The patient was agitated and did not sleep, and the patient was given Risperdal, which did finally help. The patient's urinary output and vitals have been stable. The patient is postop day #2, status post right hip repair. Physical therapy is currently at bedside, working with the patient. OBJECTIVE: VITAL SIGNS: Blood pressure 127/76, temperature 98.9, pulse 58, respirations 14, and SpO2 of 94% on room air. GENERAL: Well-appearing elderly female, awake, alert, in no distress. RESPIRATORY: Good inspiratory and expiratory effort. Respirations are even and nonlabored. CARDIAC: Regular rate and regular rhythm. ABDOMEN: Soft, nontender, and nondistended. EXTREMITIES: Moves all extremities. No focal deficits. No significant swelling. Right hip dressing is clean, dry, and intact. ASSESSMENT: 1. Status post ground level fall. 2. Status post postop day #2 open reduction and internal fixation of right femoral neck fracture. 3. History of hypertension, coronary artery disease, atrial fibrillation, congestive heart failure, dementia, and Plavix use. PLAN: Continue supportive care. Continue pain regimen. Continue physical and occupational therapy. Restart Plavix. The patient is pending placement back to [facility]. [facility] indicates that they need two negative COVID results before they will accept the patient back. The patient's hydrocortisone will be discontinued as her blood pressure has been stable. We will order a COVID-19 test. Job ID: [id number]
[2020-04-09] MEDS: Atorvastatin Calcium 10 MG TAB PO SCH (19:34)
[2020-04-09] MEDS: Gabapentin 100 MG CAP PO SCH (19:34)
[2020-04-09] MEDS: Cyclobenzaprine 10 MG TAB PO PRN (19:34)
[2020-04-09] MEDS: Senokot S 8.6-50 MG TAB PO SCH (20:53)
[2020-04-09] MEDS ORDERED: Melatonin 3 MG TAB PO SCH (21:00)
--- NOTE | 2020-04-10 02:06 | PRG ---
DATE OF SERVICE: 04/09/2020 SUBJECTIVE: The patient was seen this evening, lying in bed, asleep, with no signs of acute distress. Nursing reported no acute events. OBJECTIVE: VITAL SIGNS: Temperature 98.3, pulse 76, respirations 16, oxygen saturation 94% on room air, and blood pressure 156/79. GENERAL: Well-appearing elderly female, lying in bed, asleep, with no signs of acute distress. PULMONARY: Equal chest rise and fall. No signs of acute respiratory distress. ASSESSMENT: 1. Status post ground-level fall. 2. Right hip fracture, status post repair. 3. History of hypertension, congestive heart failure, atrial fibrillation, chronic kidney disease, diabetes, dementia, diverticulitis, and depression. PLAN: Continue current diet and pain regimen. Continue physical and occupational therapy. The patient is pending return to the intermediate in [place] where she resides. They have requested 2 negative COVID tests. Those results are pending. Job ID: [id number]
[2020-04-10] MEDS: Acetaminophen 325 MG TAB PO SCH ×2 (02:28→10:06)
[2020-04-10 06:03] LABS: Band 7 % (5-11); Eosinophils 2 % (0-10); Hemoglobin 10.3 g/dL (12.0-16.0); Lymphocytes 27 % (21-51); MDiff Complete? YES; Mean Corpuscular Hemoglobin 30.5 pg (27.0-31.0); Mean Corpuscular Volume 95.4 fL (78.0-98.0); Mean Platelet Volume 8.6 fL (7.4-10.4); Monocytes 7 % (0-10); Neutrophil 57 % (42-75); Platelet Count 237 thou/uL (130-400); Platelet Morphology Comment Appears Adequate; RBC Distribution Width 12.3 % (11.5-14.5); Red Blood Cell (RBC) Count 3.37 mill/uL (4.20-5.40); White Blood Cell (WBC) Count 9.9 thou/uL (4.8-10.8)
[2020-04-10 06:16] LABS: Anion Gap 13 mmol/L (10-20); BUN (Urea Nitrogen) 17 mg/dL (9.8-20.1); Calc. Creatinine Clearance 37 mL/min (70-130); Calcium 8.2 mg/dL (7.8-10.44); Carbon Dioxide 26 mmol/L (23-31); Chloride 105 mmol/L (98-107); Estimated GFR-MDRD 47; Glucose 107 mg/dL (83-110); Magnesium 2.1 mg/dL (1.6-2.6); Phosphorus 2.5 mg/dL (2.3-4.7); Potassium 4.2 mmol/L (3.5-5.1); Sodium 140 mmol/L (136-145)
[2020-04-10] MEDS: Ferrous Sulfate 325 MG TAB PO SCH ×2 (07:45→10:06)
[2020-04-10] MEDS ORDERED: Ascorbic Acid 500 mg Chewable Tablet PO SCH (09:00)
[2020-04-10] MEDS: Multivitamin W/ Minerals 1 TAB PO SCH (10:05)
[2020-04-10] MEDS: ALPRAZolam 0.5 MG TAB PO SCH (10:05)
[2020-04-10] MEDS: Famotidine 20 MG TAB PO SCH (10:06)
[2020-04-10] MEDS: Furosemide 20 MG TAB PO SCH (10:06)
[2020-04-10] MEDS: Senokot S 8.6-50 MG TAB PO SCH (10:06)
[2020-04-10] MEDS: Zinc Sulfate 220 MG CAP PO SCH (10:06)
[2020-04-10] MEDS: Clopidogrel Bisulfate 75 MG TAB PO SCH (10:06)
[2020-04-10] MEDS: Digoxin 0.125 MG TAB PO SCH (10:07)
[2020-04-10] MEDS: Gabapentin 100 MG CAP PO SCH (10:07)
[2020-04-10] MEDS: Carvedilol 3.125 MG TAB PO SCH (10:07)
[2020-04-10] MEDS: Oxybutynin ER 5 MG TAB PO SCH (10:07)
[2020-04-10] MEDS: Triamcinolone 0.1% Cream 15 GM TUBE TOP SCH (10:11)
[2020-04-10 11:24] LABS: SARS-CoV-2 MS2 Positive; SARS-CoV-2 N Gene Negative; SARS-CoV-2 S Gene Negative; SARS-CoV-2 orf1ab Negative
[2020-04-10 11:37] VITALS: BP 138/81; TEMP 99
--- NOTE | 2020-04-10 16:46 | DIS ---
DATE OF ADMISSION: 04/06/2020 DATE OF DISCHARGE: 04/10/2020 DISCHARGE ATTENDING: Dr. Richardson. CONSULTS: Dr. Yu, Orthopedic Surgery. PROCEDURES: On 04/07/2020, right hip hemiarthroplasty for right subcapital femoral neck fracture. PRIMARY DIAGNOSIS: Right subcapital femoral neck fracture, status post ground level fall. SECONDARY DIAGNOSES: History of hypertension, congestive heart failure, atrial fibrillation, chronic kidney disease, diabetes, phlebitis, diverticulitis, dementia, and depression. DISCHARGE MEDICATIONS: 1. Tylenol 650 mg q.6 hours. 2. Xanax 0.5 mg p.o. b.i.d. as needed. 3. Vitamin C 500 mg p.o. daily. 4. Atorvastatin 10 mg p.o. at bedtime. 5. Carvedilol 3.125 mg p.o. b.i.d. 6. Plavix 75 mg p.o. q.a.m. 7. Flexeril 5 mg p.o. 3 times a day as needed for muscle spasms. 8. Digoxin 0.125 mg p.o. daily. 9. Pepcid 20 mg p.o. daily. 10. Ferrous sulfate 325 mg p.o. daily. 11. Lasix 20 mg p.o. daily. 12. Gabapentin 100 mg p.o. 3 times a day. 13. Milk of magnesia hydroxide 30 mL p.o. b.i.d. p.r.n. constipation. 14. Oxybutynin 15 mg p.o. daily. 15. Ditropan XL 5 mg ER p.o. daily. 16. Oxycodone 10 mg p.o. q.4 hours p.r.n. pain. 17. MiraLAX 17 g p.o. daily as needed. 18. Senokot-S 2 tabs p.o. b.i.d. as needed for constipation. 19. Tramadol 50 mg p.o. q.6 hours p.r.n. 20. Glucophage 500 mg p.o. q.a.m. with meals and 50 mg p.o. q.p.m. with meals. 21. Trulicity 0.75 mg subcu q.7 days. 22. Aspirin 81 mg p.o. daily. No discontinued medications. HISTORY OF PRESENT ILLNESS AND HOSPITAL COURSE: This is an 89-year-old female, who lives at [facility], who reportedly had a ground level fall in her bathroom. The patient was evaluated in the emergency room and found to have a right femoral neck fracture. The patient did not recall any events and does not recall falling. The patient did have a contusion on her occiput. The patient had a head CT and C-spine CT, which were unremarkable. The patient was admitted to [facility] and the patient's pain was well controlled pre and postop. The patient had one day extended length of stay due to [facility] requiring COVID testing before the patient be accepted back to the facility. On the day of discharge, the patient was seen and evaluated by Dr. Richardson. The patient had no complaints. Her pain was well controlled. The patient's vital signs were stable on the day of discharge and her exam was unremarkable including cardiopulmonary and GI exam. The patient was deemed stable for discharge to [facility] for continued physical and occupational therapy. The patient's COVID-19 was negative. DISPOSITION: Stable. DISCHARGE INSTRUCTIONS: 1. Location: [facility]. 2. Diet: Diabetic diet. 3. Activity: Weightbearing as tolerated, posterior hip precautions. 4. Followup: Follow up with Dr. Yu in 10 days. No need to follow up with Trauma Services. Call for any questions. This is just a summary of the patient's hospital course. Please see the patient's chart for details. Job ID: [id number]
[2020-04-11 15:28] LABS: BUN (Urea Nitrogen) 34 mg/dL (9.8-20.1)
--- NOTE | 2020-04-11 23:19 | PQF ---
ELIEL PERALTA Vincent U DO [id number] [facility] [id number] CLINICAL DOCUMENTATION CLARIFICATION FORM: POST DISCHARGE Addendum to original discharge summary date: ____ Late entry note date: __ DATE: 04/11/2020 ATTN:Shay Richardson DO Please exercise your independent, professional judgment in responding to the clarification form. Clinical indicators are provided on the bottom of this form for your review Please check appropriate box(s): HEART FAILURE: A. TYPE: [ ] Systolic / HFrEF [ ] Diastolic / HFpEF [ ] Combined Systolic / Diastolic B. ACUITY [ ] Acute [ ] Acute on Chronic [ ] Chronic [ ] Other diagnosis (X] Unable to determine For continuity of documentation, please document condition throughout progress notes and discharge summary. Thank You. CLINICAL INDICATORS - SIGNS / SYMPTOMS / LABS - PMH: CHF- H&P, 04/06, Hugo Young PA-C - EKG: Left anterior fascicular block-ED record, 04/05, Calista Porter DO - BP: 165/66H on 04/07, 95/52L on 04/08, 159/76H on 04/10- Vital signs RISKS: - PMH: Hypertension-H&P, 04/06, Hugo Young PA-C - PMH: Chronic kidney disease- H&P, 04/06, Hugo Young PA-C TREATMENTS: Furosemide.PO- MAR, 04/06 to 04/10 (This form is maintained as a part of the permanent medical record) 2014 [employer]. All Rights Reserved [facility]
--- NOTE | 2020-04-11 23:51 | PQF ---
ELIEL PERALTA VINCENT U [id number] [facility] A [id number] CLINICAL DOCUMENTATION CLARIFICATION FORM: POST DISCHARGE Addendum to original discharge summary date: ____ Late entry note date: __ DATE:04/11/2020 ATTN:MARISSA PATTON Please exercise your independent, professional judgment in responding to the clarification form. Clinical indicators are provided on the bottom of this form for your review Please check appropriate box(s): [ X ] CKD please specify Stage of CKD__Stage 3 [ ] ESRD [ ] Other diagnosis [ ] Unable to determine National Kidney Foundation Guidelines for CKD Staging Stage I Kidney damage with normal or increased GFRGFR > 90 Stage IIKidney damage with mildly decreased GFRGFR 60-89 Stage III Kidney damage with moderately decreased GFRGFR 30-59 Stage IVKidney damage with severely decreased GFRGFR 16-29 Stage VKidney failureGFR<15 ESRDEnd Stage Renal DiseaseOn dialysis Acute Renal Failure/Acute Kidney Failure defined as: Increases in SCr by (>) 0.3 mg/dl within 48 hours OR- Increases in SCr by (>) 1.5 times baseline, known or presumed to have occurred within the prior 7 days OR- Urine volume < 0.5 ml/kg/hour for 6 hours (KDIGO supplement 2012 for RIFLE/ANNE criteria) For continuity of documentation, please document condition throughout progress notes and discharge summary. Thank You. CLINICAL INDICATORS - SIGNS / SYMPTOMS / LABS / RESULTS AND LOCATION IN [facility]: Chronic renal disease - H&P, 04/06, Hugo Young PA-C - Creatinine: 1.41H on 04/05, 1.34H on 04/06, 1.28H on 04/07, 1.33H on 04/08- Laboratory report - BUN: 34H on 04/05, 35H on 04/06, 22H on 04/07- Laboratory report - Estimated GFR: 35 on 04/05, 37 on 04/06, 47 on 04/10- Laboratory report RISK FACTORS / RESULTS AND LOCATION IN MR - PMH: Hypertension- H&P, 04/06, Hugo Young PA-C - PMH: CHF- H&P, 04/06, Hugo Young PA-C - PMH: Diabetes- - H&P, 04/06, Hugo Young PA-C TREATMENTS / RESULTS AND LOCATION IN MR - Sodium chloride.IV- MAR, 04/07 (This form is maintained as a part of the permanent medical record) 2014 [employer] All Rights Reserved [email or web address]
== END 2020-04-10 14:03 | DRG 470 ==
LOC: ERS 22:03 → SURG A 04-06 02:02
PROVIDERS: ADMIT Specialist; ATTEND Specialist
PROC: 0SRR0JZ Replacement of Right Hip Joint, Femoral Surface with Synthetic Substitute, Open Approach (ICD-10-PCS; principal; 2020-04-07)
DX: S72.011A Unspecified intracapsular fracture of right femur, initial encounter for closed fracture (principal); I13.0 Hypertensive heart and chronic kidney disease with heart failure and stage 1 through stage 4 chronic kidney disease, or unspecified chronic kidney disease; K57.92 Diverticulitis of intestine, part unspecified, without perforation or abscess without bleeding; E11.22 Type 2 diabetes mellitus with diabetic chronic kidney disease; I80.9 Phlebitis and thrombophlebitis of unspecified site; F03.90 Unspecified dementia, unspecified severity, without behavioral disturbance, psychotic disturbance, mood disturbance, and anxiety; F32.9 Major depressive disorder, single episode, unspecified; I48.91 Unspecified atrial fibrillation; S00.03XA Contusion of scalp, initial encounter; W18.39XA Other fall on same level, initial encounter; N18.3 Chronic kidney disease, stage 3 (moderate); I50.9 Heart failure, unspecified; D63.1 Anemia in chronic kidney disease; M19.90 Unspecified osteoarthritis, unspecified site; Z79.01 Long term (current) use of anticoagulants; Z11.59 Encounter for screening for other viral diseases; Z90.49 Acquired absence of other specified parts of digestive tract; Z90.710 Acquired absence of both cervix and uterus; Z88.0 Allergy status to penicillin; Z88.2 Allergy status to sulfonamides; Z88.6 Allergy status to analgesic agent; Z88.1 Allergy status to other antibiotic agents; Z91.040 Latex allergy status
CPT/HCPCS: 36415; 36416; 51702; 70450; 71045; 72125; 72170; 80048; 80162; 82533; 83036; 83735; 84100; 85007; 85025; 85027; 85610; 85730; 86850; 86900; 86901; 87635; 93005; 96374; G0390; J1100; J1644; J1720; J1815; J2001; J2405; J2704; J2795; J3010; J3475; J3490; U0003